=== PATIENT | male | born 1965 | race Caucasian/White ===

== ENCOUNTER 2016-10-31 07:42 | Inpatient (IN) | payer OTHER ==
--- NOTE | 2016-10-31 07:47 | PDOC ---
History of Present Illness - General Chief Complaint: Shortness of Breath Stated Complaint: SOB,DIZZY Time Seen by Provider: 10/31/16 07:46 - History of Present Illness Initial Comments: 10/31/16 08:56 Chief complaint: Shortness of breath History of present illness: Patient had an episode of shortness of breath yesterday while walking his dog up hill. This was accompanied by lightheadedness. It subsided within minutes after rest. There was no chest pain , nausea, diaphoresis, or discomfort in the jaw, shoulders, or arms. There was another episode of shortness of breath this morning while walking on level ground, which also subsided almost immediately with rest. No other symptoms accompanying this episode. Review of systems: Denies chest pain, abdominal pain, nausea, vomiting, diaphoresis, diarrhea, visual or focal neurologic symptoms, unsteadiness of gait. Denies recent melena, bloody stool, or hematemesis. Admits chronic bilateral lower leg pain, unrelated to exertion or exercise, poorly characterized but responsive to NSAIDs. Past medical history: The patient has not seen a physician in over 20 years. Outside of obesity and chronic bilateral leg pain, he has no known known active medical or surgical problems. He takes Naprosyn daily for his leg pain. He took aspirin 325 mg this morning because of his new symptoms. 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 Active, fully ambulatory. Family history: Sister with CHF, reportedly from chemotherapy. No known coronary artery disease in mother father or siblings. I diabetes or other metabolic diseases. Sister with cancer as noted, uncertain type Physical exam: Alert oriented 3 morbidly obese no acute distress no chest pain or shortness of breath at rest. Cheerful and cooperative Afebrile, blood pressure elevated in both arms in the 190/115 range. O2 saturation in the low 90s, but the patient does not appear short of breath or hypoxic. Right pupil 4 mm, round and reactive, fundi benign, ENT clear Neck supple without bruit mass or nodes Lungs clear bilaterally, although breath sounds are diminished symmetrically. No rales are heard. No wheezes or rhonchi. Respiratory rate is 16 and unlabored CV S1-S2 distant but normal, rate 95 and regular, no murmurs rubs or gallops. No JVD or edema. Pulses full and symmetric Abdomen soft nontender without mass or organomegaly Extremities no posterior calf swelling or tenderness. No cords. Skin clear, no rash, adequate turgor and what mucous membranes Neurological C2 to 12 intact, other than in the enucleated left eye.. No focal sensory or motor deficits. Strength full and symmetric. Gait unimpaired Impression: New onset shortness of breath, most likely due to mild CHF. Rule out acute coronary syndrome my transient arrhythmia, or less likely pulmonary embolus. Although the patient does not appear anxious, anxiety and/or hyperventilation is also possibility Plan: EKG, cardiac enzymes, CBC and chemistries, d-dimer, BNP, chest x-ray, lower blood pressure, observe. 10/31/16 10:36 10/31/16 10:39 Past History - Past Medical History Allergies/Adverse Reactions: Allergies Allergy/AdvReac Type Severity Reaction Status Date / Time Penicillins Allergy Unknown Verified 10/31/16 07:44 Home Medications: Ambulatory Orders Aspirin [ASA -] 325 mg PO ONCE 10/31/16 Naproxen Sodium [Aleve] 660 mg PO DAILY 10/31/16 ED Treatment Course - LABORATORY CBC & Chemistry Diagram: 10/31/16 08:55 10/31/16 08:55 Medical Decision Making - Medical Decision Making 10/31/16 09:09 EKG: Normal sinus rhythm 98/m. Normal axes and intervals. Small Q waves are present in leads 1-3 aVL and aVF, which are probably insignificant but possibly indicating an old inferior wall OK. There is also a P wave abnormality of uncertain significance 10/31/16 10:15 Chest x-ray read as normal by the radiologist Cardiac enzymes negative. Glucose 127. Electrolytes normal. Blood pressure remains significantly elevated. Continue pharmacological treatment and observation. 10/31/16 10:49 Blood pressure now 160/95 after administration of labetalol. Dr. Kim Kyle contacted by phone. Case discussed. She will admit for further evaluation Dr. Ford of cardiology contacted. Case discussed and he will consult. *DC/Admit/Observation/Transfer Diagnosis at time of Disposition: Elevated blood pressure, Acute coronary syndrome - Discharge Dispostion Admit: Yes
[2016-10-31 08:19] VITALS: BMI 56.9
[2016-10-31] MEDS ORDERED: NITROGLYCERIN 2% OINTMENT - 1GM PACKET TD ONE ×2 (08:30→08:43)
[2016-10-31 09:25] LABS: INR 1.2 (0.82-1.09); PROTHROMBIN TIME (PATIENT) 13.4 SEC (10.2-13.0)
[2016-10-31 09:31] LABS: ALBUMIN 3.6 g/dl (3.5-5.0); ALK PHOS 81 U/L (32-92); ANION GAP 11 (8-16); BILIRUBIN,TOTAL 0.3 mg/dl (0.2-1.0); CALCIUM 8.7 mg/dl (8.4-10.2); CO2 23 mmol/L (22-28); CPK(DFH) 75 IU/L (38-174); CREATININE 0.7 mg/dl (0.6-1.3); GLUCOSE,RANDOM 127 mg/dl (74-106); SGOT/AST 17 U/L (10-42); SGPT/ALT 21 U/L (10-40); TOT PROT 6.8 g/dl (6.4-8.3)
[2016-10-31 09:45] LABS: CHOLESTEROL 174 mg/dl
[2016-10-31 09:45] LABS: TROPONIN I (DFP) < 0.03 ng/ml (0.03-0.50)
[2016-10-31] MEDS ORDERED: LABETALOL HCL 5 MG/1 ML (100MG/20 ML VIAL) IVPUSH ONE (10:06)
[2016-10-31] MEDS ORDERED: LABETALOL HCL 5 MG/1 ML (100MG/20 ML VIAL) ONE (10:07)
[2016-10-31 10:36] LABS: MCH 26.5 pg (25.7-33.7); MCHC 32.8 g/dl (32.0-35.9); WHITE BLOOD COUNT 9.9 K/mm3 (4.0-10.0)
[2016-10-31 10:37] LABS: BASOPHIL 0.4 % (0-2.0); EOSINOPHIL 1.4 % (0-4.5); MEAN PLT VOLUME 8.3 fl (7.5-11.1); NEUTROPHILS 85.5 % (42.8-82.8); PLATELET COUNT 184 K/MM3 (134-434); RDW 15.2 % (11.9-15.9)
[2016-10-31 10:46] LABS: FREE T4 1.29 ng/dl (0.76-1.16); THYROID STIMULATING HORMONE 1.8 uIU/ml (0.358-3.74)
[2016-10-31] MEDS ORDERED: ACETAMINOPHEN 325 MG TABLET (FP) ONE (10:47)
[2016-10-31] MEDS ORDERED: ACETAMINOPHEN 325 MG TABLET (FP) PO ONE (10:47)
--- NOTE | 2016-10-31 16:54 | CON.CARD ---
Consult Consult Specialty:: Cardiology Referred by:: ED Reason for Consultation:: Dyspnea on exertion, hypertensive urgency - History of Present Illness Chief Complaint: Dyspnea on exertion History of Present Illness: 51 yo patient presented for shortness of breath while walking his dog up hill accompanied by lightheadedness subsided within minutes after rest. He denies chest pain, palpitations, near or true syncope, orthopnea, PND, LE edema. He reports another episode of shortness of breath this morning while walking on level ground, which also subsided with rest. He takes Naprosyn daily for leg pain. He took aspirin 325 mg this morning because of his new symptoms. - History Source History Provided By: Patient Limitations to Obtaining History: No Limitations - Alcohol/Substance Use Hx Alcohol Use: No - Smoking History Smoking history: Former smoker Have you smoked in the past 12 months: No If you are a former smoker, when did you quit?: 1980S Home Medications - Allergies Allergies/Adverse Reactions: Allergies Allergy/AdvReac Type Severity Reaction Status Date / Time Penicillins Allergy Unknown Verified 10/31/16 07:44 - Home Medications Home Medications: Ambulatory Orders Aspirin [ASA -] 325 mg PO ONCE 10/31/16 Naproxen Sodium [Aleve] 660 mg PO DAILY 10/31/16 Review of Systems - Review of Systems Respiratory: reports: SOB on Exertion Vital Signs: Vital Signs Temperature 98.1 F 10/31/16 16:20 Pulse Rate 96 H 10/31/16 16:20 Respiratory Rate 18 10/31/16 16:20 Blood Pressure 177/90 10/31/16 16:20 O2 Sat by Pulse Oximetry (%) 91 L 10/31/16 15:51 Constitutional: Yes: No Distress, Calm Neck: Yes: Supple Respiratory: Yes: Regular, Diminished Gastrointestinal: Yes: Normal Bowel Sounds, Soft, Abdomen, Obese Cardiovascular: Yes: Regular Rate and Rhythm JVD: No Carotid Bruit: No Heart Sounds: Yes: S1, S2 Edema: No - Other Data Labs, Other Data: INR, PTT INR 1.20 (0.82-1.09) 10/31/16 08:55 Echo: Report Reviewed Ejection Fraction %: LVEF > or = 40 % Imaging - Results Cat Scan: Report Reviewed (Bilateral lower lobe edema) Problem List - Problems (1) Acute on chronic diastolic (congestive) heart failure Code(s): I50.33 - ACUTE ON CHRONIC DIASTOLIC (CONGESTIVE) HEART FAILURE (2) Hypertensive urgency Code(s): I10 - ESSENTIAL (PRIMARY) HYPERTENSION (3) Dyspnea on exertion Code(s): R06.09 - OTHER FORMS OF DYSPNEA (4) Morbid obesity Code(s): E66.01 - MORBID (SEVERE) OBESITY DUE TO EXCESS CALORIES (5) Obstructive sleep apnea Code(s): G47.33 - OBSTRUCTIVE SLEEP APNEA (ADULT) (PEDIATRIC) Assessment/Plan 10/30/2016 Normal LV size with mild decreased LV fxn, mild cLVH, diastolic dysfunction, tr TR 10/30/[address] - Neg PE, acute consolidation bilateral lower lobes 1. Acute on chronic diastolic failure in context of 2. Hypertensive urgency, NSAID use 3. Morbid obesity 4. OSAS P:1. IV diuresis with monitor diuretic response, renal fxn and electrolytes 2. Start carvedilol 6.25 bid and Diovan 80 qd with uptitration as hemodynamics tolerate 3. NSAID avoidance 4. Sleep study as outpatient 5. Thank you for consultative opportunity
[2016-10-31] MEDS: VALSARTAN 80 MG TABLET (UD) PO SCH (17:19)
[2016-10-31] MEDS: CARVEDILOL 6.25 MG TABLET (FP) PO SCH ×2 (17:20→21:24)
[2016-10-31] MEDS: FUROSEMIDE 40 MG/4 ML INJECTABLE VIAL IVPB SCH (17:20)
[2016-10-31] MEDS ORDERED: ACETAMINOPHEN 325 MG TABLET (FP) PO PRN (18:50)
[2016-10-31] MEDS ORDERED: POLYETHYLENE GLYCOL 3350 119 GM BTL PO PRN (18:50)
[2016-10-31] MEDS ORDERED: diphenhydrAMINE HCL 25 MG CAPSULE (FP) PO PRN (18:50)
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
[2016-10-31] MEDS: ASPIRIN 325 MG TABLET PO SCH (21:23)
[2016-10-31] MEDS: HEPARIN NA (PORCINE) 5,000 UNITS/ML 1ML VIAL SQ SCH (21:24)
[2016-11-01] MEDS: HEPARIN NA (PORCINE) 5,000 UNITS/ML 1ML VIAL SQ SCH ×3 (06:41→21:47)
[2016-11-01 09:30] LABS: CALCIUM 8.8 mg/dl (8.4-10.2); MAGNESIUM 1.8 mg/dL (1.8-2.4)
[2016-11-01] MEDS: VALSARTAN 80 MG TABLET (UD) PO SCH (09:56)
[2016-11-01] MEDS: CARVEDILOL 6.25 MG TABLET (FP) PO SCH ×2 (09:56→21:47)
[2016-11-01] MEDS: FUROSEMIDE 40 MG/4 ML INJECTABLE VIAL IVPB SCH (09:56)
[2016-11-01] MEDS: ASPIRIN 325 MG TABLET PO SCH (09:56)
[2016-11-01] MEDS ORDERED: POTASSIUM CHLORIDE TABS 20 MEQ TABLET.ER (FP) PO ONE (13:45)
--- NOTE | 2016-11-01 16:21 | EKG ---
Test Reason : Blood Pressure : / mmHG Vent. Rate : 098 BPM Atrial Rate : 098 BPM P-R Int : 124 ms QRS Dur : 102 ms QT Int : 370 ms P-R-T Axes : 000 036 006 degrees QTc Int : 472 ms NORMAL SINUS RHYTHM CANNOT RULE OUT INFERIOR INFARCT , AGE UNDETERMINED NO PREVIOUS ECGS AVAILABLE Confirmed by MD CHRISTINE, GUANAKO ([id number]) on 11/01/2016 4:21:17 PM Referred By: CHAKA CASTRO Confirmed By:GUANAKO KING MD
[2016-11-01] MEDS ORDERED: FUROSEMIDE 40 MG/4 ML INJECTABLE VIAL IVPB ONE (18:00)
[2016-11-01] MEDS ORDERED: ALBUTEROL SO4 0.083% IH SOL 2.5 MG/3 ML VIAL.NEB. NEB PRN (19:20)
[2016-11-01] MEDS: LEVOFLOXACIN 500 MG IVPB 100 ML IVPB SCH (21:47)
--- NOTE | 2016-11-01 23:19 | PN ---
Progress Note, Physician Chief Complaint: Cough w uri sxs still PORTILLO and tired History of Present Illness: No evidence of acute coronary but pt w resp difficuties CXR form today w reported as + infiltrates. Will start iv abx and albutrol vi neg - Current Medication List Current Medications: Active Medications Acetaminophen (Tylenol -) 650 mg PO Q6H PRN PRN Reason: FEVER OR PAIN Albuterol Sulfate (Ventolin 0.083% Nebulizer Soln -) 1 amp NEB Q4H PRN PRN Reason: SHORT OF BREATH/WHEEZING Aspirin (Asa -) 325 mg PO DAILY [facility] Last Admin: 11/01/16 09:56 Dose: 325 mg Carvedilol (Coreg -) 6.25 mg PO BID [facility] Last Admin: 11/01/16 21:47 Dose: 6.25 mg Diphenhydramine HCl (Benadryl -) 25 mg PO HS PRN PRN Reason: INSOMNIA Furosemide (Lasix Injection -) 40 mg IVPB DAILY [facility] Last Admin: 11/01/16 09:56 Dose: 40 mg Heparin Sodium (Porcine) (Heparin -) 5,000 unit SQ TID [facility] Last Admin: 11/01/16 21:47 Dose: 5,000 unit Levofloxacin (Levaquin 500 Mg Premixed Ivpb -) 100 mls @ 100 mls/hr IVPB DAILY [facility] Last Admin: 11/01/16 21:47 Dose: 100 mls/hr Polyethylene Glycol (Miralax (For Daily Use) -) 17 gm PO DAILY PRN PRN Reason: CONSTIPATION Valsartan (Diovan -) 80 mg PO DAILY [facility] Last Admin: 11/01/16 09:56 Dose: 80 mg - Objective Vital Signs: Vital Signs Temperature 98.6 F 11/01/16 14:00 Pulse Rate 83 11/01/16 14:00 Respiratory Rate 16 11/01/16 14:00 Blood Pressure 114/72 11/01/16 14:00 O2 Sat by Pulse Oximetry (%) 92 L 11/01/16 14:00 Neck: Yes: Supple Cardiovascular: Yes: Regular Rate and Rhythm Respiratory: Yes: Diminished Gastrointestinal: Yes: Normal Bowel Sounds, Abdomen, Obese Extremities: Yes: WNL Integumentary: Yes: WNL Neurological: Yes: Alert, Oriented Psychiatric: Yes: Alert, Oriented Labs: CBC, BMP 11/01/16 08:35 INR, PTT INR 1.20 (0.82-1.09) 10/31/16 08:55 - ....Imaging Chest X-ray: Report Reviewed Problem List - Problems (1) Acute on chronic diastolic (congestive) heart failure Assessment/Plan: Dx based on Hx of presentation, clinicalexam and Echo. No evidence ao Acutes Coronary event OR CAD so far despite Hi risk. Pt w New HTN Dx, tho pt wo med eval ~20 yrs and therefore no clear answer of time of chronicity. Cardio has consulted on pt and is managing the pt. I agree w plan of care. Code(s): I50.33 - ACUTE ON CHRONIC DIASTOLIC (CONGESTIVE) HEART FAILURE (2) Dyspnea on exertion Assessment/Plan: sudden onset performing his usual level of activity; probably decompensated from subclinical diastolic failure. Today w evidence of B/L Infilytrtes, strted IV abx and Albuterol Via NB q 4 hrs Code(s): R06.09 - OTHER FORMS OF DYSPNEA (3) Elevated blood pressure Assessment/Plan: see above most likely chronic and w/o management being the precipitating facto for Acute Diastolic failure events of this admission. Improved w BB and Iv Diuretics. Cont mgmt per Cardio. WNL now Code(s): I10 - ESSENTIAL (PRIMARY) HYPERTENSION (4) Hypertensive urgency Assessment/Plan: see above; improved post Mgmt in ED and continued mgmt now. Code(s): I10 - ESSENTIAL (PRIMARY) HYPERTENSION (5) Morbid obesity Assessment/Plan: BMI 57- Most likely a major contributing factor to HTN and The Urgent event. NEEDS to addresed in the outpt setting. Pt Is a Good candidate for Bariatric Surgery IF Cardiac Clearance is granted. Code(s): E66.01 - MORBID (SEVERE) OBESITY DUE TO EXCESS CALORIES Qualifiers: Obesity type: unspecified obesity type Qualified Code(s): E66.01 - Morbid (severe) obesity due to excess calories (6) Obstructive sleep apnea Assessment/Plan: needs Sleep Study in the Outpt setting for confirmed Dx and CPAP settings. Code(s): G47.33 - OBSTRUCTIVE SLEEP APNEA (ADULT) (PEDIATRIC) (7) Bilateral pneumonia Assessment/Plan: Pt w none resolving PORTILLO despite txm for diatolic failure; CXR reported as Jese infiltratres C/W admission CXR + Nosocomial -> Started IV Abx- Consider Pulm +/ Or ID consult. Code(s): J18.9 - PNEUMONIA, UNSPECIFIED ORGANISM
[2016-11-02] MEDS: HEPARIN NA (PORCINE) 5,000 UNITS/ML 1ML VIAL SQ SCH ×3 (06:27→21:15)
--- NOTE | 2016-11-02 09:24 | PN ---
Progress Note, Physician Chief Complaint: Events noted Complains of dyspnea on exertion and cough History of Present Illness: Patient was seen and examined. Awake and alert. Chart was reviewed Denies chest pain. Complains of shortness of breath with exertion. No palpitation Complains of cough. Desaturates without oxygen - Current Medication List Current Medications: Active Medications Acetaminophen (Tylenol -) 650 mg PO Q6H PRN PRN Reason: FEVER OR PAIN Albuterol Sulfate (Ventolin 0.083% Nebulizer Soln -) 1 amp NEB Q4H PRN PRN Reason: SHORT OF BREATH/WHEEZING Aspirin (Asa -) 325 mg PO DAILY [facility] Last Admin: 11/01/16 09:56 Dose: 325 mg Carvedilol (Coreg -) 6.25 mg PO BID [facility] Last Admin: 11/01/16 21:47 Dose: 6.25 mg Diphenhydramine HCl (Benadryl -) 25 mg PO HS PRN PRN Reason: INSOMNIA Furosemide (Lasix Injection -) 40 mg IVPB DAILY [facility] Last Admin: 11/01/16 09:56 Dose: 40 mg Heparin Sodium (Porcine) (Heparin -) 5,000 unit SQ TID [facility] Last Admin: 11/02/16 06:27 Dose: 5,000 unit Levofloxacin (Levaquin 500 Mg Premixed Ivpb -) 100 mls @ 100 mls/hr IVPB DAILY [facility] Last Admin: 11/01/16 21:47 Dose: 100 mls/hr Polyethylene Glycol (Miralax (For Daily Use) -) 17 gm PO DAILY PRN PRN Reason: CONSTIPATION Valsartan (Diovan -) 80 mg PO DAILY [facility] Last Admin: 11/01/16 09:56 Dose: 80 mg - Objective Vital Signs: Vital Signs Temperature 98.8 F 11/02/16 04:27 Pulse Rate 82 11/02/16 07:31 Respiratory Rate 20 11/02/16 04:27 Blood Pressure 124/78 11/02/16 07:31 O2 Sat by Pulse Oximetry (%) 93 L 11/02/16 08:53 Neck: Yes: Supple Cardiovascular: Yes: Regular Rate and Rhythm, S1, S2 Respiratory: Yes: Diminished Gastrointestinal: Yes: Normal Bowel Sounds, Soft, Abdomen, Obese. No: Tenderness Edema: Yes Edema: LLE: Trace, RLE: Trace Additional Findings/Remarks: - Review of Systems Constitutional: denies: Chills, Fever Cardiovascular: reports: Shortness of Breath. denies: Chest Pain, Palpitations Respiratory: reports: Orthopnea, SOB, SOB on Exertion. denies: Cough, Hemoptysis, PND, Wheezing Gastrointestinal: denies: Abdominal Pain, Constipation, Diarrhea, Melena, Nausea , Rectal Bleeding, Vomiting Genitourinary: denies: Dysuria Musculoskeletal: denies: Joint Pain Neurological: denies: Dizziness, Headache, Seizure, Syncope Labs: CBC, BMP 11/01/16 08:35 Problem List - Problems (1) Acute on chronic diastolic (congestive) heart failure Code(s): I50.33 - ACUTE ON CHRONIC DIASTOLIC (CONGESTIVE) HEART FAILURE (2) Dyspnea on exertion Code(s): R06.09 - OTHER FORMS OF DYSPNEA (3) Elevated blood pressure Code(s): I10 - ESSENTIAL (PRIMARY) HYPERTENSION (4) Morbid obesity Code(s): E66.01 - MORBID (SEVERE) OBESITY DUE TO EXCESS CALORIES Qualifiers: Obesity type: unspecified obesity type Qualified Code(s): E66.01 - Morbid (severe) obesity due to excess calories (5) Obstructive sleep apnea Code(s): G47.33 - OBSTRUCTIVE SLEEP APNEA (ADULT) (PEDIATRIC) (6) Pneumonia Code(s): J18.9 - PNEUMONIA, UNSPECIFIED ORGANISM Qualifiers: Pneumonia type: due to unspecified organism Laterality: bilateral Lung location: lower lobe of lung Qualified Code(s): J18.9 - Pneumonia, unspecified organism Assessment/Plan 1. Acute on chronic diastolic failure with mildly decreased LV systolic function 2. Clinical presentation suggests pneumonia 3. Hypertension 4. Morbid obesity 5. OSAS PLAN: 1. IV diuresis with monitoring renal function and electrolytes - IV Lasix 2. Continue Carvedilol 6.25 mg BID and Diovan 80 mg QD with uptitration as hemodynamics tolerate 3. Avoid NSAIDs 4. Will need sleep study at some point - can be done as outpatient 5. Antibiotic coverage 6. Consider pulmonary consultation 7. Transthoracic echocardiography revealed normal LV size with mild decreased LV function, mild LVH, diastolic dysfunction and trace TR (10/30/16) Further plans are to follow Ralph Ford MD
[2016-11-02] MEDS: VALSARTAN 80 MG TABLET (UD) PO SCH (09:56)
[2016-11-02] MEDS: CARVEDILOL 6.25 MG TABLET (FP) PO SCH ×2 (09:56→21:15)
[2016-11-02] MEDS: ASPIRIN 325 MG TABLET PO SCH (09:57)
[2016-11-02] MEDS: LEVOFLOXACIN 500 MG IVPB 100 ML IVPB SCH (09:58)
[2016-11-02] MEDS: FUROSEMIDE 40 MG/4 ML INJECTABLE VIAL IVPB SCH (09:58)
[2016-11-02] MEDS ORDERED: PIPERACILLIN/TAZOB 4.5 GM/100 ML PRE-DOCKED IVPB ONE (15:00)
[2016-11-02] MEDS ORDERED: OSELTAMIVIR PHOSPHATE 75 MG CAPSULE PO SCH (15:45)
--- NOTE | 2016-11-02 15:56 | PN ---
Progress Note (short form) - Note Progress Note: ID consult dictated imp/reccd impending respiratory failure pneumonia-?viral, ?CAP chf htn morbid obesity penicillin allergy- unknown blood cultures, sputum culture, cbc, cmp, esr/crp, ABG vancomycin/levaquin/tamiflu (empiric) droplet isolation d/w Dr Jun Kyle and Dr Montgomery will transfer to [facility] ICU for close respiratory monitoring
--- NOTE | 2016-11-02 16:12 | PN ---
Progress Note (short form) - Note Progress Note: PULMONARY DISCUSSED CASE WITH DR BISWAS AND DR AVERY ALLISON CHART REVIEWED/IMAGING/MEDS/CONSULTS/LABS REVIEWED LVDD/CHF AND HYPOXIC RESPIRATORY FAILURE/B/L INFILTRATES ON CT(PE RULED OUT) SUPERIMOSED UPON LIKELY OSAS/OBESITY HYPOVENTILATION SYNDROME WILL TRANSFER TO [facility]. Amber ALMANZAR MD
[2016-11-02] MEDS ORDERED: VANCOMYCIN 1,500 MG in DEXTROSE 5%-WATER - 250 ML IVPB SCH (16:15)
--- NOTE | 2016-11-02 16:25 | PN ---
Progress Note, Physician Chief Complaint: Increase SOB w Lightheadednesss while taking a shower. Coughing w Mucus. No Chest pain. History of Present Illness: Admitted w ACUTE Onset PORTILLO x 1 day w Dx Acute Diastolic Heart Failure possible Due to HTN urgency; pt w/o medical care since . Txd w IV Diuretic. Admisssion CTA r/o PE was tomas X for possible Infiltrates with CXR NEG for infiltrates, No cough , afeb and NL wbc. On 1 day post admission pts w persistent PORTILLO and FUP CXR + LLL /Sup Segment AND RLL Infiltrate. Started w Levaqin IV at 500/day Plus Albuterol Neb q 4 hrs. TODAY while taking a shower pt w Incr PORTILLO plus SaO2 88% w 5 LT NC. Pulm and ID consult had been requseted. ID was On Floor who Eval pt. Under their assistance and due to pts Hypoxemia and clinical statu si t was decided pt would benefit from transfer to [facility]. ID DW w Pulmary and Primary who agreed w that plan. Pt to cont Levaquin and was started on Tamiflu, Venti Mask @ 50% (SaO2 95%. ID ordered Lactic acid, ABG, ESR, BNP and repeat CBC/diff/ CMP/ CXR virgie. Will Be trasfered to ICU [facility] - Current Medication List Current Medications: Active Medications Acetaminophen (Tylenol -) 650 mg PO Q6H PRN PRN Reason: FEVER OR PAIN Albuterol Sulfate (Ventolin 0.083% Nebulizer Soln -) 1 amp NEB Q4H PRN PRN Reason: SHORT OF BREATH/WHEEZING Last Admin: 11/02/16 10:06 Dose: 1 amp Aspirin (Asa -) 325 mg PO DAILY [facility] Last Admin: 11/02/16 09:57 Dose: 325 mg Carvedilol (Coreg -) 6.25 mg PO BID [facility] Last Admin: 11/02/16 09:56 Dose: 6.25 mg Diphenhydramine HCl (Benadryl -) 25 mg PO HS PRN PRN Reason: INSOMNIA Furosemide (Lasix Injection -) 40 mg IVPB DAILY [facility] Last Admin: 11/02/16 09:58 Dose: 40 mg Heparin Sodium (Porcine) (Heparin -) 5,000 unit SQ TID [facility] Last Admin: 11/02/16 13:58 Dose: 5,000 unit Levofloxacin (Levaquin 750 Mg Premixed Ivpb -) 150 mls @ 150 mls/hr IVPB DAILY [facility] Oseltamivir Phosphate (Tamiflu -) 75 mg PO BID [facility] Stop: 11/07/16 15:44 Polyethylene Glycol (Miralax (For Daily Use) -) 17 gm PO DAILY PRN PRN Reason: CONSTIPATION Valsartan (Diovan -) 80 mg PO DAILY [facility] Last Admin: 11/02/16 09:56 Dose: 80 mg - Objective Vital Signs: Vital Signs Temperature 98.5 F 11/02/16 14:57 Pulse Rate 81 11/02/16 14:57 Respiratory Rate 20 11/02/16 14:57 Blood Pressure 138/89 11/02/16 14:57 O2 Sat by Pulse Oximetry (%) 92 L 11/02/16 14:57 Constitutional: Yes: Obese (Mild Distress due to Resp distress better while w Resp Horace/ O2) Neck: Yes: Supple, Trachea Midline Cardiovascular: Yes: Regular Rate and Rhythm, Bruit (NO), JVD (NO) Respiratory: Yes: Diminished, Dullness, On Venti-Mask (50% w SAo2 95%), Orthopnea (NO), SOB, SOB on Exertion, Tachypnea (NO), Wheezes (NO), Other (BMI 57) Gastrointestinal: Yes: Normal Bowel Sounds, Abdomen, Obese ...Rectal Exam: Yes: Deferred Extremities: Yes: WNL, Calf Tenderness (NO) Edema: LLE: Trace, RLE: Trace Peripheral Pulses: Left Doralis Pedis: 1+, Right Dorsalis Pedis: 1+ Integumentary: Yes: WNL Neurological: Yes: Alert, Oriented Psychiatric: Yes: Alert, Oriented Labs: CBC, BMP 11/01/16 08:35 INR, PTT INR 1.20 (0.82-1.09) 10/31/16 08:55 Problem List - Problems (1) Acute on chronic diastolic (congestive) heart failure Assessment/Plan: SEE HPI. Cont Txmet w IV Diuretic and O2; no evidence of Acute coronary event; will order Troponin x 3 Code(s): I50.33 - ACUTE ON CHRONIC DIASTOLIC (CONGESTIVE) HEART FAILURE (2) Dyspnea on exertion Assessment/Plan: sudden onset performing his usual level of activity; probably decompensated from subclinical diastolic failure. It is now complicated by B/L PNA. SEE Above. Code(s): R06.09 - OTHER FORMS OF DYSPNEA (3) Elevated blood pressure Assessment/Plan: see above most likely chronic and w/o management being the precipitating facto for Acute Diastolic failure events of this admission. Improved w BB and Iv Diuretics. Cont mgmt per Cardio. WNL now Code(s): I10 - ESSENTIAL (PRIMARY) HYPERTENSION (4) Hypertensive urgency Assessment/Plan: see above; improved post Mgmt in ED and continued mgmt now. Code(s): I10 - ESSENTIAL (PRIMARY) HYPERTENSION (5) Morbid obesity Assessment/Plan: BMI 57- Most likely a major contributing factor to HTN and The Urgent event. NEEDS to addresed in the outpt setting. Pt Is a Good candidate for Bariatric Surgery IF Cardiac Clearance is granted. Code(s): E66.01 - MORBID (SEVERE) OBESITY DUE TO EXCESS CALORIES Qualifiers: Obesity type: unspecified obesity type Qualified Code(s): E66.01 - Morbid (severe) obesity due to excess calories (6) Obstructive sleep apnea Assessment/Plan: needs Sleep Study in the Outpt setting for confirmed Dx and CPAP settings. Code(s): G47.33 - OBSTRUCTIVE SLEEP APNEA (ADULT) (PEDIATRIC) (7) Bilateral pneumonia Assessment/Plan: Pt w none resolving PORTILLO despite txm for diatolic failure; CXR reported as Jese infiltratres C/W admission CXR ; Posssibly Nosocomial VS Underlying prior to admission- SEE HPI : Appreciate ID and Pulm input. Started On Levaquin yesterday and started Tamiflu todat. On VM 50% w SAO2 95%. Pend ABG, CBC, CMP, Lactic acid, ESR, BNP, Portable CXR,and BCS.. To be Transfere to ICU (5); Will Follow. Code(s): J18.9 - PNEUMONIA, UNSPECIFIED ORGANISM
[2016-11-02 16:28] LABS: MCHC 32.1 g/dl (32.0-35.9); MEAN CELL VOLUME 81.1 fl (80-96); MEAN PLT VOLUME 9.2 fl (7.5-11.1); PLATELET COUNT 175 K/MM3 (134-434); RDW 14.7 % (11.9-15.9); WHITE BLOOD COUNT 13.6 K/mm3 (4.0-10.0)
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
[2016-11-02 16:56] LABS: ALBUMIN 3.5 g/dl (3.5-5.0); ALK PHOS 96 U/L (32-92); ANION GAP 11 (8-16); CALCIUM 9.2 mg/dl (8.4-10.2); CO2 27 mmol/L (22-28); CREATININE 1.2 mg/dl (0.6-1.3); GLUCOSE,RANDOM 162 mg/dl (74-106); SGOT/AST 32 U/L (10-42); SGPT/ALT 42 U/L (10-40); TOT PROT 6.8 g/dl (6.4-8.3)
[2016-11-02 17:14] LABS: BILIRUBIN,TOTAL 0.3 mg/dl (0.2-1.0)
[2016-11-02 17:51] LABS: ERYTHROCYTE SEDIMENTATION RATE 15 mm/hr (0-20)
[2016-11-02] MEDS ORDERED: PIPERACILLIN/TAZOB 4.5 GM/100 ML PRE-DOCKED IVPB SCH (18:00)
[2016-11-02 18:21] LABS: ARTERIAL BLD GAS O2 SATURATION 99.3 % (90-98.9); ARTERIAL BLOOD GAS HCO3 23.6 meq/L (22-26); ARTERIAL BLOOD GAS pH 7.42 (7.35-7.45)
[2016-11-02 18:22] LABS: PT. ON O2? YES
[2016-11-02 18:24] LABS: LPM/O2% 5L; TYPE OF O2 NASAL
[2016-11-02 18:36] LABS: C-REACTIVE PROTEIN 2.8 MG/DL (0.00-0.3)
[2016-11-02] MEDS ORDERED: ACETAMINOPHEN 325 MG TABLET (FP) PO PRN (18:41)
[2016-11-02] MEDS ORDERED: diphenhydrAMINE HCL 25 MG CAPSULE (FP) PO PRN (18:41)
[2016-11-02] MEDS ORDERED: POLYETHYLENE GLYCOL 3350 119 GM BTL PO PRN (18:41)
[2016-11-02] MEDS ORDERED: FUROSEMIDE 40 MG/4 ML INJECTABLE VIAL IVPUSH ONE (20:39)
[2016-11-02] MEDS ORDERED: guaiFENesin/D-METHORPHAN HB 10 ML UNIT-DOSE CUPS PO PRN (21:02)
[2016-11-02] MEDS: VANCOMYCIN 1,500 MG in DEXTROSE 5%-WATER - 500 ML IVPB SCH (21:13)
[2016-11-02] MEDS: OSELTAMIVIR PHOSPHATE 75 MG CAPSULE PO SCH (21:13)
[2016-11-02] MEDS ORDERED: PT OWN MED DRAWER 7, Y5N ONE (21:14)
--- NOTE | 2016-11-02 21:31 | CONSULT ---
Consult Consult Specialty:: Pulm/CCM [employer] - History of Present Illness Chief Complaint: Dyspnea History of Present Illness: 51M w/o PMH and Morbid Obesity (BMI 57) who has not seen doctor since who presented to ER with c/o acute dyspnea on exertion. Was found to be hypertensive to [id number] with bilat diffuse opacities on CXR, WBC 9.9->13.6, N85 %, lactate 1.9, BNP 4809, Flu swab negative. CTA showed no e/o PE. He denied any prodrome of URI, fever, chills, chest pain, palpitations, syncope, sick contacts. He was initially admitted to the telemetry unit and medically treated for hypertensive urgency with diuretics, antihypertensives, nebs and started on CAP coverage and Tamiflu. Despite treatment his dyspnea worsened with need for increasing O2 support. He was transferred to ICU for further management. Received in ICU A+Ox3, afebrile, SBP 170's, HR 80's, O2 sat 96 % on 50% venti- mask, SOB and with persistent non-productive cough. He c/o pleuritic sternal pain with cough that radiated to back. Continued antibiotics , Lasix given. - History Source History Provided By: Patient Limitations to Obtaining History: No Limitations - Alcohol/Substance Use Hx Alcohol Use: No - Smoking History Smoking history: Former smoker Have you smoked in the past 12 months: No If you are a former smoker, when did you quit?: - Social History ADL: Independent Home Medications - Allergies Allergies/Adverse Reactions: Allergies Allergy/AdvReac Type Severity Reaction Status Date / Time Penicillins Allergy Unknown Verified 10/31/16 07:44 - Home Medications Home Medications: Ambulatory Orders Aspirin [ASA -] 325 mg PO ONCE 10/31/16 Naproxen Sodium [Aleve] 660 mg PO DAILY 10/31/16 Family Disease History - Family Disease History Family History: Unremarkable Review of Systems - Review of Systems Constitutional: reports: No Symptoms Eyes: reports: No Symptoms HENT: reports: No Symptoms Neck: reports: No Symptoms Cardiovascular: reports: Other (Bilat claudication) Respiratory: reports: Cough, SOB Gastrointestinal: reports: No Symptoms Genitourinary: reports: No Symptoms Neurological: reports: No Symptoms Hematology/Lymphatic: reports: No Symptoms Psychiatric: reports: No Symptoms Physical Exam Vital Signs: Vital Signs Temperature 98.9 F 11/02/16 18:00 Pulse Rate 89 11/02/16 20:55 Respiratory Rate 22 11/02/16 20:55 Blood Pressure 157/110 11/02/16 20:55 O2 Sat by Pulse Oximetry (%) 95 11/02/16 20:13 Constitutional: Yes: Other (morbid obesity) Eyes: Yes: Conjunctiva Clear HENT: Yes: Normocephalic Neck: Yes: Other (obese, unable to assess JVD) Cardiovascular: Yes: Tachycardia Respiratory: Yes: Cough (Non-productive), Diminished (Diminished bases bilat), On Venti-Mask (Venti-mask 50%) Gastrointestinal: Yes: Abdomen, Obese Extremities: Yes: Other Edema: LLE: Trace, RLE: Trace Peripheral Pulses WNL: Yes Integumentary: Yes: WNL Neurological: Yes: WNL ...Motor Strength: WNL Psychiatric: Yes: WNL Labs: CBC, BMP 11/02/16 16:00 11/02/16 16:00 ABG Results ABG pH 7.42 (7.35-7.45) 11/02/16 18:18 ABG pCO2 at Pt Temp 36.7 mmHg (35-45) 11/02/16 18:18 ABG pO2 at Pt Temp 192.0 mmHg (80-100) H* 11/02/16 18:18 ABG HCO3 23.6 meq/L (22-26) 11/02/16 18:18 ABG O2 Sat (Measured) 99.3 % (90-98.9) H 11/02/16 18:18 ABG O2 Content 21.6 % vol (15-22) 11/02/16 18:18 ABG Base Excess 0.0 meq/l (-2-2) 11/02/16 18:18 CMP Sodium 141 mmol/L (136-145) 11/02/16 16:00 Potassium 4.0 mmol/L (3.5-5.1) 11/02/16 16:00 Chloride 103 mmol/L (98-107) 11/02/16 16:00 Carbon Dioxide 27 mmol/L (22-28) 11/02/16 16:00 Anion Gap 11 (8-16) 11/02/16 16:00 BUN 28 mg/dl (7-18) H 11/02/16 16:00 Creatinine 1.2 mg/dl (0.6-1.3) 11/02/16 16:00 Creat Clearance w eGFR > 60 (>60) 11/02/16 16:00 Random Glucose 162 mg/dl (74-106) H 11/02/16 16:00 Hemoglobin A1c % 5.8 % (4.8-6.0) D 11/01/16 08:35 Lactic Acid 1.939 mmol/L (0.4-2.0) 11/02/16 16:00 Calcium 9.2 mg/dl (8.4-10.2) 11/02/16 16:00 Magnesium 1.8 mg/dL (1.8-2.4) 11/01/16 08:35 Total Bilirubin 0.3 mg/dl (0.2-1.0) 11/02/16 16:00 AST 32 U/L (10-42) D 11/02/16 16:00 ALT 42 U/L (10-40) H D 11/02/16 16:00 Alkaline Phosphatase 96 U/L (32-92) H 11/02/16 16:00 Creatine Kinase 75 IU/L (38-174) 10/31/16 08:55 Troponin I < 0.03 ng/ml (0.03-0.50) L 10/31/16 08:55 C-Reactive Protein 2.8 MG/DL (0.00-0.3) H 11/02/16 16:00 B-Natriuretic Peptide 4809.77 pg/ml (5-125) H 11/02/16 16:20 Total Protein 6.8 g/dl (6.4-8.3) 11/02/16 16:00 Albumin 3.5 g/dl (3.5-5.0) 11/02/16 16:00 Triglycerides 72 mg/dl (35-160) 10/31/16 09:08 Cholesterol 174 mg/dl 10/31/16 09:08 Total LDL Cholesterol 114 mg/dl 10/31/16 09:08 HDL Cholesterol 46 mg/dl (29-89) 10/31/16 09:08 TSH 1.80 uIU/ml (0.358-3.74) 10/31/16 09:08 Free T4 1.29 ng/dl (0.76-1.16) H 10/31/16 09:08 Current Medications Acetaminophen (Tylenol -) 650 mg PO Q6H PRN PRN Reason: FEVER OR PAIN Albuterol Sulfate (Ventolin 0.083% Nebulizer Soln -) 1 amp NEB Q4H PRN PRN Reason: SHORT OF BREATH/WHEEZING Aspirin (Asa -) 325 mg PO DAILY [facility] Carvedilol (Coreg -) 6.25 mg PO BID [facility] Last Admin: 11/02/16 21:15 Dose: 6.25 mg Diphenhydramine HCl (Benadryl -) 25 mg PO HS PRN PRN Reason: INSOMNIA Furosemide (Lasix Injection -) 40 mg IVPB DAILY [facility] Guaifenesin (Robitussin Dm -) 10 ml PO Q4H PRN PRN Reason: COUGH Heparin Sodium (Porcine) (Heparin -) 5,000 unit SQ TID [facility] Last Admin: 11/02/16 21:15 Dose: 5,000 unit Levofloxacin (Levaquin 750 Mg Premixed Ivpb -) 150 mls @ 150 mls/hr IVPB DAILY [facility] Vancomycin HCl 1,500 mg/ (Dextrose) 500 mls @ 250 mls/hr IVPB BID [facility] PRN Reason: Protocol Last Admin: 11/02/16 21:13 Dose: 250 mls/hr Influenza Virus Vaccine (Fluvirin) 45 mcg IM .ONCE ONE Stop: 11/02/16 20:24 Oseltamivir Phosphate (Tamiflu -) 75 mg PO BID [facility] Stop: 11/07/16 15:44 Last Admin: 11/02/16 21:13 Dose: 75 mg Polyethylene Glycol (Miralax (For Daily Use) -) 17 gm PO DAILY PRN PRN Reason: CONSTIPATION Valsartan (Diovan -) 80 mg PO DAILY [facility] Imaging - Results Chest X-ray: Report Reviewed, Image Reviewed Assessment/Plan 51M w/o PMH and Morbid Obesity (BMI 57) with no medical management since 1989' admitted with hypertensive crisis now with hypoxic respiratory insufficiency in the setting of possible CAP +/- flash pulmonary edema +/- CHF exacerbation. -Continue O2 support for O2 sat>92% -Consider BiPAP support if worsens -Continue CAP coverage with levaquin and Tamiflu -Continue diuresis -Continue antihypertensives -Cough suppresant prn -f/u cultures -CXR and ABG -Monitor BNP -Monitor UOP and electrolytes
[2016-11-02] MEDS ORDERED: INFLUENZA VACCINE 45 MCG/0.5 ML (MDV 16-17) IM ONE (23:30)
[2016-11-02] MEDS: ALBUTEROL SO4 0.083% IH SOL 2.5 MG/3 ML VIAL.NEB. NEB PRN (23:30)
[2016-11-03] MEDS: HEPARIN NA (PORCINE) 5,000 UNITS/ML 1ML VIAL SQ SCH ×3 (06:17→22:05)
[2016-11-03] MEDS: ALBUTEROL SO4 0.083% IH SOL 2.5 MG/3 ML VIAL.NEB. NEB PRN (07:00)
[2016-11-03] MEDS ORDERED: PT OWN MED DRAWER 7, Y5N ONE ×2 (08:20→21:43)
--- NOTE | 2016-11-03 08:47 | PN ---
Progress Note, Physician Chief Complaint: Events noted Dyspnea on exertion and cough Transferred to [facility] ICU yesterday for closer monitoring and management of respiratory status History of Present Illness: Patient was seen and examined. Awake and alert. Chart was reviewed Denies chest pain. Complains of shortness of breath with exertion. No palpitation (+) cough and congestion. - Current Medication List Current Medications: Active Medications Acetaminophen (Tylenol -) 650 mg PO Q6H PRN PRN Reason: FEVER OR PAIN Last Admin: 11/03/16 02:00 Dose: 650 mg Albuterol Sulfate (Ventolin 0.083% Nebulizer Soln -) 1 amp NEB Q4H PRN PRN Reason: SHORT OF BREATH/WHEEZING Last Admin: 11/03/16 07:00 Dose: 1 amp Aspirin (Asa -) 325 mg PO DAILY [facility] Carvedilol (Coreg -) 6.25 mg PO BID [facility] Last Admin: 11/02/16 21:15 Dose: 6.25 mg Diphenhydramine HCl (Benadryl -) 25 mg PO HS PRN PRN Reason: INSOMNIA Furosemide (Lasix Injection -) 40 mg IVPB DAILY [facility] Guaifenesin (Robitussin Dm -) 10 ml PO Q4H PRN PRN Reason: COUGH Heparin Sodium (Porcine) (Heparin -) 5,000 unit SQ TID [facility] Last Admin: 11/03/16 06:17 Dose: 5,000 unit Levofloxacin (Levaquin 750 Mg Premixed Ivpb -) 150 mls @ 150 mls/hr IVPB DAILY [facility] Vancomycin HCl 1,500 mg/ (Dextrose) 500 mls @ 250 mls/hr IVPB BID [facility] PRN Reason: Protocol Last Admin: 11/02/16 21:13 Dose: 250 mls/hr Oseltamivir Phosphate (Tamiflu -) 75 mg PO BID [facility] Stop: 11/07/16 15:44 Last Admin: 11/02/16 21:13 Dose: 75 mg Polyethylene Glycol (Miralax (For Daily Use) -) 17 gm PO DAILY PRN PRN Reason: CONSTIPATION Valsartan (Diovan -) 80 mg PO DAILY [facility] - Objective Vital Signs: Vital Signs Temperature 97.8 F 11/03/16 06:00 Pulse Rate 91 H 11/03/16 06:00 Respiratory Rate 22 11/03/16 06:00 Blood Pressure 151/110 11/03/16 06:00 O2 Sat by Pulse Oximetry (%) 95 11/02/16 20:13 Neck: Yes: Supple Cardiovascular: Yes: Regular Rate and Rhythm, S1, S2 Respiratory: Yes: Diminished, Rhonchi Gastrointestinal: Yes: Normal Bowel Sounds, Soft, Abdomen, Obese. No: Tenderness Edema: Yes Edema: LLE: Trace, RLE: Trace Additional Findings/Remarks: - Review of Systems Constitutional: denies: Chills, Fever Cardiovascular: reports: Shortness of Breath. denies: Chest Pain, Palpitations Respiratory: reports: Orthopnea, SOB, SOB on Exertion. denies: Cough, Hemoptysis, PND, Wheezing Gastrointestinal: denies: Abdominal Pain, Constipation, Diarrhea, Melena, Nausea , Rectal Bleeding, Vomiting Genitourinary: denies: Dysuria Musculoskeletal: denies: Joint Pain Neurological: denies: Dizziness, Headache, Seizure, Syncope Labs: CBC, BMP 11/02/16 16:00 11/02/16 16:00 Problem List - Problems (1) Acute on chronic diastolic (congestive) heart failure Code(s): I50.33 - ACUTE ON CHRONIC DIASTOLIC (CONGESTIVE) HEART FAILURE (2) Dyspnea on exertion Code(s): R06.09 - OTHER FORMS OF DYSPNEA (3) Elevated blood pressure Code(s): I10 - ESSENTIAL (PRIMARY) HYPERTENSION (4) Morbid obesity Code(s): E66.01 - MORBID (SEVERE) OBESITY DUE TO EXCESS CALORIES Qualifiers: Obesity type: unspecified obesity type Qualified Code(s): E66.01 - Morbid (severe) obesity due to excess calories (5) Obstructive sleep apnea Code(s): G47.33 - OBSTRUCTIVE SLEEP APNEA (ADULT) (PEDIATRIC) (6) Pneumonia Code(s): J18.9 - PNEUMONIA, UNSPECIFIED ORGANISM Qualifiers: Pneumonia type: due to unspecified organism Laterality: bilateral Lung location: lower lobe of lung Qualified Code(s): J18.9 - Pneumonia, unspecified organism Assessment/Plan 1. Acute on chronic diastolic failure with mildly decreased LV systolic function 2. Clinical presentation suggests pneumonia with respiratory distress 3. Hypertension 4. Morbid obesity 5. OSAS PLAN: 1. IV diuresis with monitoring renal function and electrolytes - IV Lasix 2. Continue Carvedilol 6.25 mg BID and Diovan 80 mg QD with uptitration as hemodynamics tolerate 3. Avoid NSAIDs 4. Will need sleep study at some point - can be done as outpatient 5. Antibiotic coverage 6. Continue present management as per Critical Care team 7. Tamiflu and Mucomyst Further plans are to follow Ralph Ford MD
[2016-11-03] MEDS: ASPIRIN 325 MG TABLET PO SCH (09:10)
[2016-11-03] MEDS: LEVOFLOXACIN 750 MG IVPB 150 ML IVPB SCH (09:10)
[2016-11-03] MEDS: OSELTAMIVIR PHOSPHATE 75 MG CAPSULE PO SCH ×2 (09:11→22:06)
[2016-11-03] MEDS: FUROSEMIDE 40 MG/4 ML INJECTABLE VIAL IVPB SCH (09:11)
[2016-11-03] MEDS: CARVEDILOL 6.25 MG TABLET (FP) PO SCH ×2 (09:11→22:05)
[2016-11-03] MEDS: VALSARTAN 80 MG TABLET (UD) PO SCH (09:11)
[2016-11-03] MEDS ORDERED: LEVOFLOXACIN 750 MG IVPB 150 ML IVPB SCH (10:00)
--- NOTE | 2016-11-03 10:55 | PN ---
Progress Note (short form) - Note Progress Note: alert breathing unchanged ventimask Vital Signs Period Temp Pulse Resp BP Sys/Da Silva Pulse Ox Last 24 Hr 97.6 F-98.9 F 73-91 15-24 136-169/89-110 92-95 cor-rrr lungs scattered rhonchi abd-soft,nt ext no edema CBC, BMP 11/02/16 16:00 11/02/16 16:00 Microbiology 11/01/16 20:00 Urine For Antigen Detection Legionella Antigen - Final 11/01/16 20:00 Urine For Antigen Detection Streptococcus pneumoniae Antigen (M - Final 11/01/16 20:00 Nasopharyngeal Swab Influenza Types A,B Antigen (TG) - Final 11/01/16 20:00 Nasopharyngeal Swab - Final Current Medications Acetaminophen (Tylenol -) 650 mg PO Q6H PRN PRN Reason: FEVER OR PAIN Last Admin: 11/03/16 02:00 Dose: 650 mg Albuterol Sulfate (Ventolin 0.083% Nebulizer Soln -) 1 amp NEB Q4H PRN PRN Reason: SHORT OF BREATH/WHEEZING Last Admin: 11/03/16 07:00 Dose: 1 amp Aspirin (Asa -) 325 mg PO DAILY [facility] Last Admin: 11/03/16 09:10 Dose: 325 mg Carvedilol (Coreg -) 6.25 mg PO BID [facility] Last Admin: 11/03/16 09:11 Dose: 6.25 mg Diphenhydramine HCl (Benadryl -) 25 mg PO HS PRN PRN Reason: INSOMNIA Furosemide (Lasix Injection -) 40 mg IVPB DAILY [facility] Last Admin: 11/03/16 09:11 Dose: 40 mg Guaifenesin (Robitussin Dm -) 10 ml PO Q4H PRN PRN Reason: COUGH Heparin Sodium (Porcine) (Heparin -) 5,000 unit SQ TID [facility] Last Admin: 11/03/16 06:17 Dose: 5,000 unit Levofloxacin (Levaquin 750 Mg Premixed Ivpb -) 150 mls @ 150 mls/hr IVPB DAILY [facility] Last Admin: 11/03/16 09:10 Dose: 150 mls/hr Vancomycin HCl 1,500 mg/ (Dextrose) 500 mls @ 250 mls/hr IVPB BID [facility] PRN Reason: Protocol Last Admin: 11/02/16 21:13 Dose: 250 mls/hr Oseltamivir Phosphate (Tamiflu -) 75 mg PO BID [facility] Stop: 11/07/16 15:44 Last Admin: 11/03/16 09:11 Dose: 75 mg Polyethylene Glycol (Miralax (For Daily Use) -) 17 gm PO DAILY PRN PRN Reason: CONSTIPATION Valsartan (Diovan -) 80 mg PO DAILY [facility] Last Admin: 11/03/16 09:11 Dose: 80 mg a/p pneumonia hypoxia chf/htn morbid obesity continue vanco/levaquin/tamiflu check vancomycin trough f/u labs f/u cultures
--- NOTE | 2016-11-03 11:08 | PN ---
Progress Note (short form) - Note Progress Note: Patient seen and examined in the ICU. Remains mildly tachypneic on 50% VM. Reports breathing is slightly better. (+) congested cough, finds it difficult to expectorate. No CP. Constitutional: Yes: Awake and alert, Mildly tachypneic on 50% VM Eyes: Yes: Conjunctiva Clear HENT: Yes: Normocephalic Neck: Yes: Other (obese, unable to assess JVD) Cardiovascular: Yes: Tachycardia Respiratory: Yes: Cough, Diminished at the bases, few scattered rhonchi Gastrointestinal: Yes: Abdomen, Obese Extremities: Yes: Other Edema: LLE: Trace, RLE: Trace Peripheral Pulses WNL: Yes Integumentary: Yes: WNL Neurological: Yes: WNL ...Motor Strength: WNL Psychiatric: Yes: WNL Labs: Laboratory Results - last 24 hr 11/02/16 11/02/16 11/02/16 16:00 16:00 16:00 WBC 13.6 H RBC 5.88 H Hgb 15.3 Hct 47.7 MCV 81.1 MCHC 32.1 RDW 14.7 Plt Count 175 MPV 9.2 ESR 15 Puncture Site ABG pH ABG pCO2 at Pt Temp ABG pO2 at Pt Temp ABG HCO3 ABG O2 Sat (Measured) ABG O2 Content ABG Base Excess Navid Test O2 Delivery Device Oxygen Flow Rate PEEP Sodium 141 Potassium 4.0 Chloride 103 Carbon Dioxide 27 Anion Gap 11 BUN 28 H Creatinine 1.2 Creat Clearance w eGFR > 60 Random Glucose 162 H Lactic Acid 1.939 Calcium 9.2 Total Bilirubin 0.3 AST 32 D ALT 42 H D Alkaline Phosphatase 96 H C-Reactive Protein 2.8 H B-Natriuretic Peptide Total Protein 6.8 Albumin 3.5 11/02/16 11/02/16 11/02/16 16:20 18:00 18:18 WBC RBC Hgb Hct MCV MCHC RDW Plt Count MPV ESR Puncture Site Md puncture ABG pH 7.42 ABG pCO2 at Pt Temp 36.7 ABG pO2 at Pt Temp 192.0 H* ABG HCO3 23.6 ABG O2 Sat (Measured) 99.3 H ABG O2 Content 21.6 ABG Base Excess 0.0 Navid Test Not applicable O2 Delivery Device Y Nasal Oxygen Flow Rate 5l PEEP 0.0 Sodium Potassium Chloride Carbon Dioxide Anion Gap BUN Creatinine Creat Clearance w eGFR Random Glucose Lactic Acid Calcium Total Bilirubin AST ALT Alkaline Phosphatase C-Reactive Protein B-Natriuretic Peptide 4809.77 H Total Protein Albumin Assessment/Plan Acute hypoxic respiratory Failure due to suspected CAP +/- CHF Morbid Obesity Hypertensive crisis Likely OSAS -Continue O2 support for O2 sat>92% -BiPAP support if worsens -Continue CAP coverage per ID -Tamiflu -Continue diuresis -Continue antihypertensives -f/u cultures -CXR in AM -ICU monitoring for tenuous respiratory status Dr Ramos CCTime 35"
[2016-11-03] MEDS: ACETYLCYSTEINE 20% 200MG/ML 4 ML VIAL *FOR ORAL / INH USE ONLY NEB SCH ×2 (11:50→21:00)
[2016-11-03] MEDS: ARFORMOTEROL TARTRATE 15 MCG/2 ML VIAL NEB SCH ×2 (11:50→21:00)
[2016-11-03] MEDS: VANCOMYCIN 1,500 MG in DEXTROSE 5%-WATER - 500 ML IVPB SCH ×2 (14:27→22:25)
--- NOTE | 2016-11-03 15:00 | PN ---
Progress Note, Physician Chief Complaint: Breathing more comftorbly post Mucomyst x 1. Cough w mucus decr in frequency and intensity. History of Present Illness: SEE Yesterdays note. In ICU w stble SAO2 @ 95% on VM 50%. Still PORTILLO and Fatigue and weakness. - Current Medication List Current Medications: Active Medications Acetaminophen (Tylenol -) 650 mg PO Q6H PRN PRN Reason: FEVER OR PAIN Last Admin: 11/03/16 02:00 Dose: 650 mg Acetylcysteine (Mucomyst 20 Oral / Inh Use Only*) 200 mg NEB BID [facility] Last Admin: 11/03/16 11:50 Dose: 200 mg Albuterol Sulfate (Ventolin 0.083% Nebulizer Soln -) 1 amp NEB Q4H PRN PRN Reason: SHORT OF BREATH/WHEEZING Last Admin: 11/03/16 07:00 Dose: 1 amp Arformoterol Tartrate (Brovana (Restricted To Pulmonology/Resp) -) 1 amp NEB BID [facility] Last Admin: 11/03/16 11:50 Dose: 1 amp Aspirin (Asa -) 325 mg PO DAILY [facility] Last Admin: 11/03/16 09:10 Dose: 325 mg Carvedilol (Coreg -) 6.25 mg PO BID [facility] Last Admin: 11/03/16 09:11 Dose: 6.25 mg Diphenhydramine HCl (Benadryl -) 25 mg PO HS PRN PRN Reason: INSOMNIA Furosemide (Lasix Injection -) 40 mg IVPB DAILY [facility] Last Admin: 11/03/16 09:11 Dose: 40 mg Guaifenesin (Robitussin Dm -) 10 ml PO Q4H PRN PRN Reason: COUGH Heparin Sodium (Porcine) (Heparin -) 5,000 unit SQ TID [facility] Last Admin: 11/03/16 14:26 Dose: 5,000 unit Levofloxacin (Levaquin 750 Mg Premixed Ivpb -) 150 mls @ 150 mls/hr IVPB DAILY [facility] Last Admin: 11/03/16 09:10 Dose: 150 mls/hr Vancomycin HCl 1,500 mg/ (Dextrose) 500 mls @ 250 mls/hr IVPB BID [facility] PRN Reason: Protocol Last Admin: 11/03/16 14:27 Dose: 250 mls/hr Oseltamivir Phosphate (Tamiflu -) 75 mg PO BID [facility] Stop: 11/07/16 15:44 Last Admin: 11/03/16 09:11 Dose: 75 mg Polyethylene Glycol (Miralax (For Daily Use) -) 17 gm PO DAILY PRN PRN Reason: CONSTIPATION Valsartan (Diovan -) 80 mg PO DAILY [facility] Last Admin: 11/03/16 09:11 Dose: 80 mg - Objective Vital Signs: Vital Signs Temperature 97.8 F 11/03/16 10:00 Pulse Rate 78 11/03/16 12:00 Respiratory Rate 17 11/03/16 12:00 Blood Pressure 147/77 11/03/16 12:00 O2 Sat by Pulse Oximetry (%) 95 11/02/16 20:13 Constitutional: Yes: Calm Neck: Yes: Supple Cardiovascular: Yes: Regular Rate and Rhythm, Tachycardia (NONE) Respiratory: Yes: Cough (w mucus), Dullness, On Venti-Mask (50%), Rhonchi ( LLBase), SOB on Exertion, Wheezes (NO) Gastrointestinal: Yes: Normal Bowel Sounds, Abdomen, Obese ...Rectal Exam: Yes: Deferred Edema: LLE: 1+, RLE: 1+ Peripheral Pulses: Left Doralis Pedis: 1+, Right Dorsalis Pedis: 1+ Integumentary: Yes: WNL Neurological: Yes: Alert, Oriented ...Motor Strength: WNL Psychiatric: Yes: Alert, Oriented Labs: CBC, BMP 11/02/16 16:00 11/02/16 16:00 INR, PTT INR 1.20 (0.82-1.09) 10/31/16 08:55 Laboratory Last Values WBC 13.6 K/mm3 (4.0-10.0) H 11/02/16 16:00 RBC 5.88 M/mm3 (4.00-5.60) H 11/02/16 16:00 Hgb 15.3 GM/dl (11.7-16.9) 11/02/16 16:00 Hct 47.7 % (35.4-49) 11/02/16 16:00 MCV 81.1 fl (80-96) 11/02/16 16:00 MCHC 32.1 g/dl (32.0-35.9) 11/02/16 16:00 RDW 14.7 % (11.9-15.9) 11/02/16 16:00 Plt Count 175 K/MM3 (134-434) 11/02/16 16:00 MPV 9.2 fl (7.5-11.1) 11/02/16 16:00 Neutrophils % 85.5 % (42.8-82.8) H 10/31/16 08:55 Lymphocytes % 8.2 % (8-40) 10/31/16 08:55 Monocytes % 4.5 % (3.8-10.2) 10/31/16 08:55 Eosinophils % 1.4 % (0-4.5) 10/31/16 08:55 Basophils % 0.4 % (0-2.0) 10/31/16 08:55 ESR 15 mm/hr (0-20) 11/02/16 16:00 INR 1.20 (0.82-1.09) 10/31/16 08:55 D-Dimer 2596 ng/ml (<200-235) H 10/31/16 08:55 Puncture Site Md puncture 11/02/16 18:18 ABG pH 7.42 (7.35-7.45) 11/02/16 18:18 ABG pCO2 at Pt Temp 36.7 mmHg (35-45) 11/02/16 18:18 ABG pO2 at Pt Temp 192.0 mmHg (80-100) H* 11/02/16 18:18 ABG HCO3 23.6 meq/L (22-26) 11/02/16 18:18 ABG O2 Sat (Measured) 99.3 % (90-98.9) H 11/02/16 18:18 ABG O2 Content 21.6 % vol (15-22) 11/02/16 18:18 ABG Base Excess 0.0 meq/l (-2-2) 11/02/16 18:18 Navid Test Not applicable 11/02/16 18:18 O2 Delivery Device Nasal 11/02/16 18:18 Oxygen Flow Rate 5l 11/02/16 18:18 PEEP 0.0 cmH2O 11/02/16 18:18 Sodium 141 mmol/L (136-145) 11/02/16 16:00 Potassium 4.0 mmol/L (3.5-5.1) 11/02/16 16:00 Chloride 103 mmol/L (98-107) 11/02/16 16:00 Carbon Dioxide 27 mmol/L (22-28) 11/02/16 16:00 Anion Gap 11 (8-16) 11/02/16 16:00 BUN 28 mg/dl (7-18) H 11/02/16 16:00 Creatinine 1.2 mg/dl (0.6-1.3) 11/02/16 16:00 Creat Clearance w eGFR > 60 (>60) 11/02/16 16:00 Random Glucose 162 mg/dl (74-106) H 11/02/16 16:00 Hemoglobin A1c % 5.8 % (4.8-6.0) D 11/01/16 08:35 Lactic Acid 1.939 mmol/L (0.4-2.0) 11/02/16 16:00 Calcium 9.2 mg/dl (8.4-10.2) 11/02/16 16:00 Magnesium 1.8 mg/dL (1.8-2.4) 11/01/16 08:35 Total Bilirubin 0.3 mg/dl (0.2-1.0) 11/02/16 16:00 AST 32 U/L (10-42) D 11/02/16 16:00 ALT 42 U/L (10-40) H D 11/02/16 16:00 Alkaline Phosphatase 96 U/L (32-92) H 11/02/16 16:00 Creatine Kinase 75 IU/L (38-174) 10/31/16 08:55 Troponin I < 0.03 ng/ml (0.03-0.50) L 10/31/16 08:55 C-Reactive Protein 2.8 MG/DL (0.00-0.3) H 11/02/16 16:00 B-Natriuretic Peptide 4809.77 pg/ml (5-125) H 11/02/16 16:20 Total Protein 6.8 g/dl (6.4-8.3) 11/02/16 16:00 Albumin 3.5 g/dl (3.5-5.0) 11/02/16 16:00 Triglycerides 72 mg/dl (35-160) 10/31/16 09:08 Cholesterol 174 mg/dl 10/31/16 09:08 Total LDL Cholesterol 114 mg/dl 10/31/16 09:08 HDL Cholesterol 46 mg/dl (29-89) 10/31/16 09:08 TSH 1.80 uIU/ml (0.358-3.74) 10/31/16 09:08 Free T4 1.29 ng/dl (0.76-1.16) H 10/31/16 09:08 BCS x 2 11-02-16 NRG Legionella Final NEG Pneumococ Final NEG Influenza A/B NEG - ....Imaging Chest X-ray: Report Reviewed (progressive perihilar infiltrate consider CT If Cont to progress) Problem List - Problems (1) Acute on chronic diastolic (congestive) heart failure Assessment/Plan: Clinically improved on IV diuretics and antihypertensives - defer to Cardio. BNP Trending down. Code(s): I50.33 - ACUTE ON CHRONIC DIASTOLIC (CONGESTIVE) HEART FAILURE (2) Dyspnea on exertion Assessment/Plan: sudden onset performing his usual level of activity; probably decompensated from possible subclinical diastolic failure. It is now complicated by B/L PNA. SEE notes. Code(s): R06.09 - OTHER FORMS OF DYSPNEA (3) Elevated blood pressure Assessment/Plan: stable on meds. Code(s): I10 - ESSENTIAL (PRIMARY) HYPERTENSION (4) Hypertensive urgency Assessment/Plan: RESOLVED Code(s): I10 - ESSENTIAL (PRIMARY) HYPERTENSION (5) Morbid obesity Assessment/Plan: BMI 57- Most likely a major contributing factor to HTN and The Urgent event. NEEDS to addresed in the outpt setting. Pt Is a Good candidate for Bariatric Surgery IF Cardiac Clearance is granted. Code(s): E66.01 - MORBID (SEVERE) OBESITY DUE TO EXCESS CALORIES Qualifiers: Obesity type: unspecified obesity type Qualified Code(s): E66.01 - Morbid (severe) obesity due to excess calories (6) Obstructive sleep apnea Assessment/Plan: needs Sleep Study in the Outpt setting for confirmed Dx and CPAP settings. Code(s): G47.33 - OBSTRUCTIVE SLEEP APNEA (ADULT) (PEDIATRIC) (7) Bilateral pneumonia Assessment/Plan: Perihialr infiltrates in CXK 11-02-16; s/p Mucomyst x 1 -improved breathinhng- 505 VM, Vanco/Levaquin /Tamiflu. Pulm and ID On Board. Code(s): J18.9 - PNEUMONIA, UNSPECIFIED ORGANISM (8) Hyperglycemia Assessment/Plan: assoc w Acute illness; Hgba1c 5.9% C/W w Pre Diabetes. Code(s): R73.9 - HYPERGLYCEMIA, UNSPECIFIED
[2016-11-04 06:15] LABS: BASOPHIL 0.4 % (0-2.0); EOSINOPHIL 3.5 % (0-4.5); MCH 26.7 pg (25.7-33.7); MCHC 32.8 g/dl (32.0-35.9); MEAN CELL VOLUME 81.4 fl (80-96); MEAN PLT VOLUME 9.1 fl (7.5-11.1); NEUTROPHILS 74.6 % (42.8-82.8); PLATELET COUNT 151 K/MM3 (134-434); RDW 15.1 % (11.9-15.9); WHITE BLOOD COUNT 12.2 K/mm3 (4.0-10.0)
[2016-11-04] MEDS: HEPARIN NA (PORCINE) 5,000 UNITS/ML 1ML VIAL SQ SCH ×3 (06:31→21:26)
[2016-11-04 07:01] LABS: ALBUMIN 2.8 g/dl (3.4-5.0); ALK PHOS 88 U/L (45-117); ANION GAP 11 (8-16); BILIRUBIN,TOTAL 0.9 mg/dL (0.2-1.0); CALCIUM 8.5 mg/dL (8.5-10.1); CO2 30 mmol/L (21-32); GLUCOSE,RANDOM 121 mg/dL (74-106); MAGNESIUM 2.4 mg/dL (1.8-2.4); PHOSPHOROUS 4.5 mg/dL (2.5-4.9); SGOT/AST 16 U/L (15-37); SGPT/ALT 40 U/L (12-78); TOT PROT 5.8 g/dl (6.4-8.2)
[2016-11-04] MEDS ORDERED: PT OWN MED DRAWER 7, Y5N ONE ×2 (08:35→21:23)
--- NOTE | 2016-11-04 09:16 | PN ---
Progress Note, Physician Chief Complaint: ID Some improvement since admission - Current Medication List Current Medications: Active Medications Acetaminophen (Tylenol -) 650 mg PO Q6H PRN PRN Reason: FEVER OR PAIN Last Admin: 11/03/16 02:00 Dose: 650 mg Acetylcysteine (Mucomyst 20 Oral / Inh Use Only*) 200 mg NEB BID [facility] Last Admin: 11/03/16 21:00 Dose: 200 mg Albuterol Sulfate (Ventolin 0.083% Nebulizer Soln -) 1 amp NEB Q4H PRN PRN Reason: SHORT OF BREATH/WHEEZING Last Admin: 11/03/16 07:00 Dose: 1 amp Arformoterol Tartrate (Brovana (Restricted To Pulmonology/Resp) -) 1 amp NEB BID [facility] Last Admin: 11/03/16 21:00 Dose: 1 amp Aspirin (Asa -) 325 mg PO DAILY [facility] Last Admin: 11/03/16 09:10 Dose: 325 mg Carvedilol (Coreg -) 6.25 mg PO BID [facility] Last Admin: 11/03/16 22:05 Dose: 6.25 mg Diphenhydramine HCl (Benadryl -) 25 mg PO HS PRN PRN Reason: INSOMNIA Furosemide (Lasix Injection -) 40 mg IVPB DAILY [facility] Last Admin: 11/03/16 09:11 Dose: 40 mg Guaifenesin (Robitussin Dm -) 10 ml PO Q4H PRN PRN Reason: COUGH Last Admin: 11/03/16 22:10 Dose: 10 ml Heparin Sodium (Porcine) (Heparin -) 5,000 unit SQ TID [facility] Last Admin: 11/04/16 06:31 Dose: 5,000 unit Levofloxacin (Levaquin 750 Mg Premixed Ivpb -) 150 mls @ 150 mls/hr IVPB DAILY [facility] Last Admin: 11/03/16 09:10 Dose: 150 mls/hr Vancomycin HCl 1,500 mg/ (Dextrose) 500 mls @ 250 mls/hr IVPB BID [facility] PRN Reason: Protocol Last Admin: 11/03/16 22:25 Dose: 250 mls/hr Oseltamivir Phosphate (Tamiflu -) 75 mg PO BID [facility] Stop: 11/07/16 15:44 Last Admin: 11/03/16 22:06 Dose: 75 mg Polyethylene Glycol (Miralax (For Daily Use) -) 17 gm PO DAILY PRN PRN Reason: CONSTIPATION Valsartan (Diovan -) 80 mg PO DAILY [facility] Last Admin: 11/03/16 09:11 Dose: 80 mg - Objective Vital Signs: Vital Signs Temperature 98.2 F 11/04/16 06:00 Pulse Rate 70 11/04/16 06:00 Respiratory Rate 25 H 11/04/16 06:00 Blood Pressure 135/87 11/04/16 06:00 O2 Sat by Pulse Oximetry (%) 95 11/02/16 20:13 Constitutional: Yes: Mild Distress HENT: Yes: WNL, Atraumatic Neck: Yes: WNL, Supple Cardiovascular: Yes: S1, S2. No: Regular Rate and Rhythm Respiratory: Yes: WNL, Regular, CTA Bilaterally Gastrointestinal: Yes: WNL, Normal Bowel Sounds, Soft. No: Tenderness Edema: No Labs: CBC, BMP 11/04/16 05:00 11/04/16 05:00 INR, PTT INR 1.20 (0.82-1.09) 10/31/16 08:55 Assessment/Plan Microbiology 11/01/16 20:00 Urine For Antigen Detection Legionella Antigen - Final 11/01/16 20:00 Urine For Antigen Detection Streptococcus pneumoniae Antigen (M - Final 11/01/16 20:00 Nasopharyngeal Swab Influenza Types A,B Antigen (TG) - Final 11/01/16 20:00 Nasopharyngeal Swab - Final 11/02/16 16:20 Blood - Peripheral Venous Blood Culture - Preliminary NO GROWTH OBTAINED AFTER 24 HOURS, INCUBATION TO CONTINUE FOR 4 DAYS. 11/02/16 16:20 Blood - Peripheral Venous Blood Culture - Preliminary NO GROWTH OBTAINED AFTER 24 HOURS, INCUBATION TO CONTINUE FOR 4 DAYS. Laboratory Tests 11/04/16 11/04/16 05:00 05:00 WBC 12.2 H Hgb 13.4 Hct 40.7 Plt Count 151 BUN 27 H Creat Clearance w eGFR > 60 Assessment Morbid obesity Respiratory failure Superimposed respiratory tract infection Plan Continue antiviral and Levofloxacin Stop Vancomycin Lorri SCHMIDT
[2016-11-04] MEDS: LEVOFLOXACIN 750 MG IVPB 150 ML IVPB SCH (09:57)
[2016-11-04] MEDS: ASPIRIN 325 MG TABLET PO SCH (09:57)
[2016-11-04] MEDS: FUROSEMIDE 40 MG/4 ML INJECTABLE VIAL IVPB SCH (09:58)
[2016-11-04] MEDS: OSELTAMIVIR PHOSPHATE 75 MG CAPSULE PO SCH ×2 (09:59→21:27)
[2016-11-04] MEDS: ACETYLCYSTEINE 20% 200MG/ML 4 ML VIAL *FOR ORAL / INH USE ONLY NEB SCH ×2 (10:00→21:59)
[2016-11-04] MEDS: ARFORMOTEROL TARTRATE 15 MCG/2 ML VIAL NEB SCH ×2 (10:00→21:59)
[2016-11-04] MEDS: VALSARTAN 80 MG TABLET (UD) PO SCH (10:01)
[2016-11-04] MEDS: CARVEDILOL 6.25 MG TABLET (FP) PO SCH ×2 (10:02→21:26)
--- NOTE | 2016-11-04 11:01 | PN ---
Progress Note, Physician History of Present Illness: Dyspnea slowly improving. - Current Medication List Current Medications: Active Medications Acetaminophen (Tylenol -) 650 mg PO Q6H PRN PRN Reason: FEVER OR PAIN Last Admin: 11/03/16 02:00 Dose: 650 mg Acetylcysteine (Mucomyst 20 Oral / Inh Use Only*) 200 mg NEB BID [facility] Last Admin: 11/03/16 21:00 Dose: 200 mg Albuterol Sulfate (Ventolin 0.083% Nebulizer Soln -) 1 amp NEB Q4H PRN PRN Reason: SHORT OF BREATH/WHEEZING Last Admin: 11/03/16 07:00 Dose: 1 amp Arformoterol Tartrate (Brovana (Restricted To Pulmonology/Resp) -) 1 amp NEB BID [facility] Last Admin: 11/03/16 21:00 Dose: 1 amp Aspirin (Asa -) 325 mg PO DAILY [facility] Last Admin: 11/04/16 09:57 Dose: 325 mg Carvedilol (Coreg -) 6.25 mg PO BID [facility] Last Admin: 11/04/16 10:02 Dose: 6.25 mg Diphenhydramine HCl (Benadryl -) 25 mg PO HS PRN PRN Reason: INSOMNIA Furosemide (Lasix Injection -) 40 mg IVPB DAILY [facility] Last Admin: 11/04/16 09:58 Dose: 40 mg Guaifenesin (Robitussin Dm -) 10 ml PO Q4H PRN PRN Reason: COUGH Last Admin: 11/03/16 22:10 Dose: 10 ml Heparin Sodium (Porcine) (Heparin -) 5,000 unit SQ TID [facility] Last Admin: 11/04/16 06:31 Dose: 5,000 unit Levofloxacin (Levaquin 750 Mg Premixed Ivpb -) 150 mls @ 150 mls/hr IVPB DAILY [facility] Last Admin: 11/04/16 09:57 Dose: 150 mls/hr Oseltamivir Phosphate (Tamiflu -) 75 mg PO BID [facility] Stop: 11/07/16 15:44 Last Admin: 11/04/16 09:59 Dose: 75 mg Polyethylene Glycol (Miralax (For Daily Use) -) 17 gm PO DAILY PRN PRN Reason: CONSTIPATION Valsartan (Diovan -) 80 mg PO DAILY [facility] Last Admin: 11/04/16 10:01 Dose: 80 mg - Objective Vital Signs: Vital Signs Temperature 98.2 F 11/04/16 06:00 Pulse Rate 70 11/04/16 06:00 Respiratory Rate 25 H 11/04/16 06:00 Blood Pressure 135/87 11/04/16 06:00 O2 Sat by Pulse Oximetry (%) 95 11/02/16 20:13 Constitutional: Yes: No Distress, Calm Neck: Yes: Supple Cardiovascular: Yes: Regular Rate and Rhythm Respiratory: Yes: Regular, Diminished, On Nasal O2 Gastrointestinal: Yes: Normal Bowel Sounds, Soft, Abdomen, Obese Edema: Yes Edema: LLE: Trace, RLE: Trace Labs: CBC, BMP 11/04/16 05:00 11/04/16 05:00 INR, PTT INR 1.20 (0.82-1.09) 10/31/16 08:55 - ....Imaging Chest X-ray: Report Reviewed (Residual left perihilar infiltrate) Problem List - Problems (1) Acute on chronic diastolic (congestive) heart failure Code(s): I50.33 - ACUTE ON CHRONIC DIASTOLIC (CONGESTIVE) HEART FAILURE (2) Hypertensive urgency Code(s): I10 - ESSENTIAL (PRIMARY) HYPERTENSION (3) Dyspnea on exertion Code(s): R06.09 - OTHER FORMS OF DYSPNEA (4) Morbid obesity Code(s): E66.01 - MORBID (SEVERE) OBESITY DUE TO EXCESS CALORIES Qualifiers: Obesity type: unspecified obesity type Qualified Code(s): E66.01 - Morbid (severe) obesity due to excess calories (5) Obstructive sleep apnea Code(s): G47.33 - OBSTRUCTIVE SLEEP APNEA (ADULT) (PEDIATRIC) Assessment/Plan 1. Acute on chronic diastolic failure with mildly decreased LV systolic function improving 2. Respiratory failure referable to pneumonia improving 3. Hypertension 4. Morbid obesity 5. OSAS PLAN: 1. Lasix 40 IV qd with monitoring renal function and electrolytes 2. Continue ASA 325 qd, Carvedilol 6.25 mg BID and Diovan 80 mg QD with uptitration as hemodynamics tolerate 3. Avoid NSAIDs 4. Will need sleep study at some point - can be done as outpatient 5. Antibiotic coverage per ID 6. BD, Tamiflu and Mucomyst 7. DVT prophylaxis
[2016-11-04] MEDS ORDERED: diphenhydrAMINE HCL 25 MG CAPSULE (FP) PO PRN (12:27)
[2016-11-04] MEDS ORDERED: ALBUTEROL SO4 0.083% IH SOL 2.5 MG/3 ML VIAL.NEB. NEB PRN (12:27)
[2016-11-04] MEDS ORDERED: ACETAMINOPHEN 325 MG TABLET (FP) PO PRN (12:27)
[2016-11-04] MEDS ORDERED: POLYETHYLENE GLYCOL 3350 119 GM BTL PO PRN (12:27)
--- NOTE | 2016-11-04 13:05 | PN ---
Teaching Attending Note Name of Resident: Bhargav Vásquez ATTENDING PHYSICIAN STATEMENT I saw and evaluated the patient. I reviewed the resident's note and discussed the case with the resident. I agree with the resident's findings and plan as documented. SUBJECTIVE: Patient seen and examined in the ICU. Less tachypneic today. On VM O2. Reports breathing is improving. (+) congested cough. No CP. Intake & Output 11/01/16 11/02/16 11/03/16 11/04/16 23:59 23:59 23:59 23:59 Intake Total 3437 056 6892 Output Total 6143 928 5183 550 Balance -5 0 2500 -550 Weight 418 lb 8 oz 417 lb 14.4 oz 427 lb 5 oz 421 lb 15.436 oz Last Vital Signs Temp Pulse Resp BP Pulse Ox 98.2 F 78 25 H 135/87 94 L 11/04/16 06:00 11/04/16 11:21 11/04/16 06:00 11/04/16 06:00 11/04/16 11:21 Active Medications Acetaminophen (Tylenol -) 650 mg PO Q6H PRN PRN Reason: FEVER OR PAIN Acetylcysteine (Mucomyst 20 Oral / Inh Use Only*) 200 mg NEB BID [facility] Albuterol Sulfate (Ventolin 0.083% Nebulizer Soln -) 1 amp NEB Q4H PRN PRN Reason: SHORT OF BREATH/WHEEZING Arformoterol Tartrate (Brovana (Restricted To Pulmonology/Resp) -) 1 amp NEB BID [facility] Aspirin (Asa -) 325 mg PO DAILY [facility] Carvedilol (Coreg -) 6.25 mg PO BID [facility] Diphenhydramine HCl (Benadryl -) 25 mg PO HS PRN PRN Reason: INSOMNIA Furosemide (Lasix Injection -) 40 mg IVPB DAILY [facility] Guaifenesin (Robitussin Dm -) 10 ml PO Q4H PRN PRN Reason: COUGH Heparin Sodium (Porcine) (Heparin -) 5,000 unit SQ TID [facility] Levofloxacin (Levaquin 750 Mg Premixed Ivpb -) 150 mls @ 150 mls/hr IVPB DAILY [facility] Oseltamivir Phosphate (Tamiflu -) 75 mg PO BID [facility] Stop: 11/07/16 15:44 Polyethylene Glycol (Miralax (For Daily Use) -) 17 gm PO DAILY PRN PRN Reason: CONSTIPATION Valsartan (Diovan -) 80 mg PO DAILY [facility] Constitutional: Yes: Awake and alert Eyes: Yes: Conjunctiva Clear HENT: Yes: Normocephalic Neck: Yes: Other (obese) Cardiovascular: Yes: S1S2 Respiratory: Yes: Cough, Diminished at the bases, few scattered rhonchi Gastrointestinal: Yes: Abdomen, Obese Extremities: Yes: Other Edema: LLE: Trace, RLE: Trace Peripheral Pulses WNL: Yes Integumentary: Yes: WNL Neurological: Yes: WNL ...Motor Strength: WNL Psychiatric: Yes: WNL Labs: Laboratory Results - last 24 hr 11/04/16 11/04/16 05:00 05:00 WBC 12.2 H RBC 5.00 Hgb 13.4 Hct 40.7 MCV 81.4 MCHC 32.8 RDW 15.1 Plt Count 151 MPV 9.1 Neutrophils % 74.6 Lymphocytes % 14.0 D Monocytes % 7.5 Eosinophils % 3.5 D Basophils % 0.4 Sodium 142 Potassium 3.9 Chloride 101 Carbon Dioxide 30 Anion Gap 11 BUN 27 H Creatinine 1.0 Creat Clearance w eGFR > 60 Random Glucose 121 H Calcium 8.5 Phosphorus 4.5 Magnesium 2.4 D Total Bilirubin 0.9 AST 16 ALT 40 Alkaline Phosphatase 88 Total Protein 5.8 L Albumin 2.8 L Assessment/Plan Acute hypoxic respiratory Failure due to suspected CAP +/- CHF Morbid Obesity Hypertensive crisis Likely OSAS -Continue O2 support for O2 sat>92% -BiPAP support if worsens -Continue CAP coverage per ID -Tamiflu -Continue diuresis -Continue antihypertensives -Floor -Will need formal sleep apnea workup as an outpatient Dr Ramos CCTime 35"
--- NOTE | 2016-11-04 14:24 | PN ---
Progress Note, Physician Chief Complaint: Breathing more comfortably; tolerating Mucomyst BID well; VM changed to 4L NC w SAO2 @ 94%. No C ain No Parethsia or numbness or focal waekness or lightheadedness. History of Present Illness: SEE above - Transfered plan to [facility] today. - Current Medication List Current Medications: Active Medications Acetaminophen (Tylenol -) 650 mg PO Q6H PRN PRN Reason: FEVER OR PAIN Acetylcysteine (Mucomyst 20 Oral / Inh Use Only*) 200 mg NEB BID [facility] Albuterol Sulfate (Ventolin 0.083% Nebulizer Soln -) 1 amp NEB Q4H PRN PRN Reason: SHORT OF BREATH/WHEEZING Arformoterol Tartrate (Brovana (Restricted To Pulmonology/Resp) -) 1 amp NEB BID [facility] Aspirin (Asa -) 325 mg PO DAILY [facility] Carvedilol (Coreg -) 6.25 mg PO BID REAG[facility] Diphenhydramine HCl (Benadryl -) 25 mg PO HS PRN PRN Reason: INSOMNIA Furosemide (Lasix Injection -) 40 mg IVPB DAILY [facility] Guaifenesin (Robitussin Dm -) 10 ml PO Q4H PRN PRN Reason: COUGH Heparin Sodium (Porcine) (Heparin -) 5,000 unit SQ TID [facility] Levofloxacin (Levaquin 750 Mg Premixed Ivpb -) 150 mls @ 150 mls/hr IVPB DAILY [facility] Oseltamivir Phosphate (Tamiflu -) 75 mg PO BID [facility] Stop: 11/07/16 15:44 Polyethylene Glycol (Miralax (For Daily Use) -) 17 gm PO DAILY PRN PRN Reason: CONSTIPATION Valsartan (Diovan -) 80 mg PO DAILY [facility] - Objective Vital Signs: Vital Signs Temperature 98.1 F 11/04/16 10:00 Pulse Rate 76 11/04/16 12:00 Respiratory Rate 20 11/04/16 12:00 Blood Pressure 125/75 11/04/16 12:00 O2 Sat by Pulse Oximetry (%) 94 L 11/04/16 11:21 Constitutional: Yes: No Distress, Calm Neck: Yes: Supple Cardiovascular: Yes: Regular Rate and Rhythm, Tachycardia (NONE), Bruit (NONE), JVD (NONE), Murmur (NONE) Respiratory: Yes: CTA Bilaterally, On Nasal O2 (4L w SAO2 94-95%), Rales (none) , Rhonchi (none), Tachypnea (none), Wheezes (none) Gastrointestinal: Yes: Normal Bowel Sounds, Abdomen, Obese, Tenderness (none) Genitourinary: Yes: WNL Extremities: Yes: WNL Edema: LLE: 1+, RLE: 1+ Peripheral Pulses WNL: Yes Peripheral Pulses: Left Doralis Pedis: 1+, Right Dorsalis Pedis: 1+ Integumentary: Yes: WNL Neurological: Yes: Alert, Oriented ...Motor Strength: WNL Psychiatric: Yes: Alert, Oriented Labs: CBC, BMP 11/04/16 05:00 11/04/16 05:00 INR, PTT INR 1.20 (0.82-1.09) 10/31/16 08:55 Laboratory Last Values WBC 12.2 K/mm3 (4.0-10.0) H 11/04/16 05:00 RBC 5.00 M/mm3 (4.00-5.60) 11/04/16 05:00 Hgb 13.4 GM/dL (11.7-16.9) 11/04/16 05:00 Hct 40.7 % (35.4-49) 11/04/16 05:00 MCV 81.4 fl (80-96) 11/04/16 05:00 MCHC 32.8 g/dl (32.0-35.9) 11/04/16 05:00 RDW 15.1 % (11.9-15.9) 11/04/16 05:00 Plt Count 151 K/MM3 (134-434) 11/04/16 05:00 MPV 9.1 fl (7.5-11.1) 11/04/16 05:00 Neutrophils % 74.6 % (42.8-82.8) 11/04/16 05:00 Lymphocytes % 14.0 % (8-40) D 11/04/16 05:00 Monocytes % 7.5 % (3.8-10.2) 11/04/16 05:00 Eosinophils % 3.5 % (0-4.5) D 11/04/16 05:00 Basophils % 0.4 % (0-2.0) 11/04/16 05:00 ESR 15 mm/hr (0-20) 11/02/16 16:00 INR 1.20 (0.82-1.09) 10/31/16 08:55 D-Dimer 2596 ng/ml (<200-235) H 10/31/16 08:55 Puncture Site Md puncture 11/02/16 18:18 ABG pH 7.42 (7.35-7.45) 11/02/16 18:18 ABG pCO2 at Pt Temp 36.7 mmHg (35-45) 11/02/16 18:18 ABG pO2 at Pt Temp 192.0 mmHg (80-100) H* 11/02/16 18:18 ABG HCO3 23.6 meq/L (22-26) 11/02/16 18:18 ABG O2 Sat (Measured) 99.3 % (90-98.9) H 11/02/16 18:18 ABG O2 Content 21.6 % vol (15-22) 11/02/16 18:18 ABG Base Excess 0.0 meq/l (-2-2) 11/02/16 18:18 Navid Test Not applicable 11/02/16 18:18 O2 Delivery Device Nasal 11/02/16 18:18 Oxygen Flow Rate 5l 11/02/16 18:18 PEEP 0.0 cmH2O 11/02/16 18:18 Sodium 142 mmol/L (136-145) 11/04/16 05:00 Potassium 3.9 mmol/L (3.5-5.1) 11/04/16 05:00 Chloride 101 mmol/L (98-107) 11/04/16 05:00 Carbon Dioxide 30 mmol/L (21-32) 11/04/16 05:00 Anion Gap 11 (8-16) 11/04/16 05:00 BUN 27 mg/dL (7-18) H 11/04/16 05:00 Creatinine 1.0 mg/dL (0.7-1.3) 11/04/16 05:00 Creat Clearance w eGFR > 60 (>60) 11/04/16 05:00 Random Glucose 121 mg/dL (74-106) H 11/04/16 05:00 Hemoglobin A1c % 5.8 % (4.8-6.0) D 11/01/16 08:35 Lactic Acid 1.939 mmol/L (0.4-2.0) 11/02/16 16:00 Calcium 8.5 mg/dL (8.5-10.1) 11/04/16 05:00 Phosphorus 4.5 mg/dL (2.5-4.9) 11/04/16 05:00 Magnesium 2.4 mg/dL (1.8-2.4) D 11/04/16 05:00 Total Bilirubin 0.9 mg/dL (0.2-1.0) 11/04/16 05:00 AST 16 U/L (15-37) 11/04/16 05:00 ALT 40 U/L (12-78) 11/04/16 05:00 Alkaline Phosphatase 88 U/L (45-117) 11/04/16 05:00 Creatine Kinase 75 IU/L (38-174) 10/31/16 08:55 Troponin I < 0.03 ng/ml (0.03-0.50) L 10/31/16 08:55 C-Reactive Protein 2.8 MG/DL (0.00-0.3) H 11/02/16 16:00 B-Natriuretic Peptide 4809.77 pg/ml (5-125) H 11/02/16 16:20 Total Protein 5.8 g/dl (6.4-8.2) L 11/04/16 05:00 Albumin 2.8 g/dl (3.4-5.0) L 11/04/16 05:00 Triglycerides 72 mg/dl (35-160) 10/31/16 09:08 Cholesterol 174 mg/dl 10/31/16 09:08 Total LDL Cholesterol 114 mg/dl 10/31/16 09:08 HDL Cholesterol 46 mg/dl (29-89) 10/31/16 09:08 TSH 1.80 uIU/ml (0.358-3.74) 10/31/16 09:08 Free T4 1.29 ng/dl (0.76-1.16) H 10/31/16 09:08 11/02 - BCS x 2 NEG x 24 hr 11/04 - WBC Trending to NL range 11/04 - MG 2.4 Phos 4 - ....Imaging Chest X-ray: Report Reviewed (11/04 No Change from 11/03 LEFT Perihilar Infiltrate ) Problem List - Problems (1) Acute on chronic diastolic (congestive) heart failure Assessment/Plan: Clinically improved on IV diuretics and antihypertensives - IV Lasix 40mg/d , Carvedilol 6.25 mg BID and Diovan 80mg/ d - Appreciate Cardio input. BNP Trending down; will follow. Code(s): I50.33 - ACUTE ON CHRONIC DIASTOLIC (CONGESTIVE) HEART FAILURE (2) Dyspnea on exertion Assessment/Plan: sudden onset performing his usual level of activity; probably decompensated from possible subclinical diastolic failure. It is now complicated by B/L PNA. SEE notes. Improving w present Txmt - IV Lasiv, AARB, BB, AntBx, Antiviarl, Mucomyst, B adrenergic neb and O2. Cardio, Pulm and ID on Board. Code(s): R06.09 - OTHER FORMS OF DYSPNEA (3) Elevated blood pressure Assessment/Plan: stable on meds. Code(s): I10 - ESSENTIAL (PRIMARY) HYPERTENSION (4) Morbid obesity Assessment/Plan: BMI 57- Most likely a major contributing factor to HTN and The Urgent event. NEEDS to addresed in the outpt setting. Pt Is a Good candidate for Bariatric Surgery IF Cardiac Clearance is granted. Code(s): E66.01 - MORBID (SEVERE) OBESITY DUE TO EXCESS CALORIES Qualifiers: Obesity type: unspecified obesity type Qualified Code(s): E66.01 - Morbid (severe) obesity due to excess calories (5) Obstructive sleep apnea Assessment/Plan: needs Sleep Study in the Outpt setting for confirmed Dx and CPAP settings. Code(s): G47.33 - OBSTRUCTIVE SLEEP APNEA (ADULT) (PEDIATRIC) (6) Bilateral pneumonia Assessment/Plan: Perihialr/ Left infiltrates in CXK 11-04-16; s/p Mucomyst BID -improved breathing - Levaquin /Tamiflu- DC Vanco per ID.. Pulm on Board as well. Code(s): J18.9 - PNEUMONIA, UNSPECIFIED ORGANISM (7) Hyperglycemia Assessment/Plan: assoc w Acute illness; Hgba1c 5.9% C/W w Pre Diabetes. Consider Metformin post DC Home- Pt reported will register at [facility] in [facility]. Code(s): R73.9 - HYPERGLYCEMIA, UNSPECIFIED
--- NOTE | 2016-11-04 16:49 | PN ---
Physical Exam: SUBJECTIVE: Patient seen and examined at bedside in the ICU. He reported breathing much improved and no other complaints. Denies chest pain, fever, chills, n/v, bowel or urinary sx. OBJECTIVE: On ventimask 15L Vital Signs Period Temp Pulse Resp BP Sys/Da Silva Pulse Ox Last 24 Hr 98 F-98.2 F 70-79 17-27 118-154/75-104 94-95 GENERAL: The patient is awake, alert, and fully oriented, on ventimask 15L EYES: PERRL, extraocular movements intact, sclera anicteric, conjunctiva clear. . LUNGS: Breath sounds equal, clear to auscultation bilaterally, no wheezes, no crackles, no accessory muscle use. HEART: Regular rate and rhythm, S1, S2 without murmur, rub or gallop. ABDOMEN: Soft,obese, non-tender, nondistended, normoactive bowel sounds, no guarding, no rebound, no hepatosplenomegaly, no masses. EXTREMITIES: trace edema. Laboratory Results - last 24 hr 11/04/16 11/04/16 05:00 05:00 WBC 12.2 H RBC 5.00 Hgb 13.4 Hct 40.7 MCV 81.4 MCHC 32.8 RDW 15.1 Plt Count 151 MPV 9.1 Neutrophils % 74.6 Lymphocytes % 14.0 D Monocytes % 7.5 Eosinophils % 3.5 D Basophils % 0.4 Sodium 142 Potassium 3.9 Chloride 101 Carbon Dioxide 30 Anion Gap 11 BUN 27 H Creatinine 1.0 Creat Clearance w eGFR > 60 Random Glucose 121 H Calcium 8.5 Phosphorus 4.5 Magnesium 2.4 D Total Bilirubin 0.9 AST 16 ALT 40 Alkaline Phosphatase 88 Total Protein 5.8 L Albumin 2.8 L Active Medications Generic Name Dose Route Start Last Admin Trade Name Freq PRN Reason Stop Dose Admin Acetaminophen 650 mg 11/04/16 12:27 Tylenol - PO Q6H PRN FEVER OR PAIN Acetylcysteine 200 mg 11/04/16 22:00 Mucomyst 20 Oral / Inh Use Only* NEB BID REAGAN Albuterol Sulfate 1 amp 11/04/16 12:27 Ventolin 0.083% Nebulizer Soln - NEB Q4H PRN SHORT OF BREATH/WHEEZING Arformoterol Tartrate 1 amp 11/04/16 22:00 Brovana (Restricted To Pulmonology/Resp) - NEB BID REAG[facility] Aspirin 325 mg 11/05/16 10:00 Asa - PO DAILY [facility] Carvedilol 6.25 mg 11/04/16 22:00 Coreg - PO BID REAGAN Diphenhydramine HCl 25 mg 11/04/16 12:27 Benadryl - PO HS PRN INSOMNIA Furosemide 40 mg 11/05/16 10:00 Lasix Injection - IVPB DAILY [facility] Guaifenesin 10 ml 11/04/16 12:27 Robitussin Dm - PO Q4H PRN COUGH Heparin Sodium (Porcine) 5,000 unit 11/04/16 14:00 11/04/16 14:22 Heparin - SQ 5,000 unit TID REAGAN Administration Levofloxacin 150 mls @ 150 mls/hr 11/05/16 10:00 Levaquin 750 Mg Premixed Ivpb - IVPB DAILY [facility] Oseltamivir Phosphate 75 mg 11/04/16 22:00 Tamiflu - PO 11/07/16 15:44 BID [facility] Polyethylene Glycol 17 gm 11/04/16 12:27 Miralax (For Daily Use) - PO DAILY PRN CONSTIPATION Valsartan 80 mg 11/05/16 10:00 Diovan - PO DAILY [facility] Imaging CXR: Since a prior study of 11/02/2016, the heart size remains slightly enlarged with residual left perihilar infiltrate. No new infiltrates or pleural effusions have developed. IMPRESSION: No significant change ECHO (10/31): normal LVF, mild LVH, EF 60%, trace tri. regurg ASSESSMENT/PLAN: 51 yo M w/ h/o morbid obesity admitted to the ICU for acute hypoxic respiratory failure. Pulm: Acute hypoxic respiratory failure 2/2 CAP vs. CHF exacerbation - BiPAP PRN - maintain O2 sat >92% - Incentive spirometer - cont. diuresis with lasix 40mg IVPB ID: community acquired pneumonia - afrebile and WBC trending down - improving left perihilar infiltrate on CXR - cont. tamiflu 75mg BID and levaquin 750 mg daily Cardiac: HTN in the setting of underlying SONIA - admitted initially for hypertensive crisis - cont. coreg 6.25 PO BID, valsartan 80mg PO daily, lasix 40mg IVPB daily FEN - fluid not indicated - elevated BUN, will monitor - sodium restrict diet Prophylaxis - DVT: SCDs - GI: not indicated Disposition - transfer to med-surg Code status - Full code Visit type - Emergency Visit Emergency Visit: No - New Patient This patient is new to me today: Yes Date on this admission: 11/04/16 - Critical Care Critical Care patient: Yes Total Critical Care Time (in minutes): 45 Critical Care Statement: The care of this patient involved high complexity decision making to prevent further life threatening deterioration of the patient 's condition and/or to evalute & treat vital organ system(s) failure or risk of failure.
[2016-11-04] MEDS: guaiFENesin/D-METHORPHAN HB 10 ML UNIT-DOSE CUPS PO PRN (21:31)
[2016-11-05] MEDS: HEPARIN NA (PORCINE) 5,000 UNITS/ML 1ML VIAL SQ SCH ×3 (05:25→21:52)
[2016-11-05 05:51] LABS: BASOPHIL 0.4 % (0-2.0); EOSINOPHIL 4.2 % (0-4.5); MCH 26.7 pg (25.7-33.7); MCHC 32.9 g/dl (32.0-35.9); MEAN PLT VOLUME 9.5 fl (7.5-11.1); NEUTROPHILS 74.1 % (42.8-82.8); PLATELET COUNT 157 K/MM3 (134-434); RDW 14.9 % (11.9-15.9); WHITE BLOOD COUNT 12.2 K/mm3 (4.0-10.0)
[2016-11-05 06:17] LABS: ALBUMIN 2.8 g/dl (3.4-5.0); ANION GAP 9 (8-16); BILIRUBIN,TOTAL 0.6 mg/dL (0.2-1.0); CALCIUM 8.2 mg/dL (8.5-10.1); CO2 31 mmol/L (21-32); CREATININE 1.1 mg/dL (0.7-1.3); GLUCOSE,RANDOM 108 mg/dL (74-106); MAGNESIUM 2.2 mg/dL (1.8-2.4); PHOSPHOROUS 3.9 mg/dL (2.5-4.9); SGOT/AST 21 U/L (15-37); SGPT/ALT 55 U/L (12-78); TOT PROT 6.1 g/dl (6.4-8.2)
[2016-11-05 06:18] LABS: ALK PHOS 105 U/L (45-117)
--- NOTE | 2016-11-05 08:44 | PN ---
Progress Note (short form) - Note Progress Note: still with nonproductive cough feels better Vital Signs Period Temp Pulse Resp BP Sys/Da Silva Pulse Ox Last 24 Hr 97.3 F-98.1 F 74-86 20-25 92-150/69-88 94-96 cor-rrr lungs bilateral rhonchi abd soft, nt ext no edema CBC, BMP 11/05/16 05:00 11/05/16 05:00 Microbiology 11/02/16 16:20 Blood - Peripheral Venous Blood Culture - Preliminary NO GROWTH OBTAINED AFTER 48 HOURS, INCUBATION TO CONTINUE FOR 3 DAYS. 11/02/16 16:20 Blood - Peripheral Venous Blood Culture - Preliminary NO GROWTH OBTAINED AFTER 48 HOURS, INCUBATION TO CONTINUE FOR 3 DAYS. 11/01/16 20:00 Urine For Antigen Detection Legionella Antigen - Final 11/01/16 20:00 Urine For Antigen Detection Streptococcus pneumoniae Antigen (M - Final 11/01/16 20:00 Nasopharyngeal Swab Influenza Types A,B Antigen (TG) - Final 11/01/16 20:00 Nasopharyngeal Swab - Final cxray left perihilar infiltrate a/p
--- NOTE | 2016-11-05 08:47 | PN ---
Progress Note (short form) - Note Progress Note: still with nonproductive cough- but less, on nasal canulla feels better Vital Signs Period Temp Pulse Resp BP Sys/Da Silva Pulse Ox Last 24 Hr 97.3 F-98.1 F 74-86 20-25 92-150/69-88 94-96 cor-rrr lungs bilateral rhonchi abd soft, nt ext no edema CBC, BMP 11/05/16 05:00 11/05/16 05:00 Microbiology 11/02/16 16:20 Blood - Peripheral Venous Blood Culture - Preliminary NO GROWTH OBTAINED AFTER 48 HOURS, INCUBATION TO CONTINUE FOR 3 DAYS. 11/02/16 16:20 Blood - Peripheral Venous Blood Culture - Preliminary NO GROWTH OBTAINED AFTER 48 HOURS, INCUBATION TO CONTINUE FOR 3 DAYS. 11/01/16 20:00 Urine For Antigen Detection Legionella Antigen - Final 11/01/16 20:00 Urine For Antigen Detection Streptococcus pneumoniae Antigen (M - Final 11/01/16 20:00 Nasopharyngeal Swab Influenza Types A,B Antigen (TG) - Final 11/01/16 20:00 Nasopharyngeal Swab - Final cxray left perihilar infiltrate a/p respiratory failure-improved pneumonia- continue levaquin empiric tamiflu- droplet isolation htn morbid obesity chf osas
[2016-11-05] MEDS ORDERED: PT OWN MED DRAWER 7, Y5N ONE (08:55)
--- NOTE | 2016-11-05 09:15 | PN ---
Progress Note, Physician Chief Complaint: Events noted Dyspnea on exertion and cough persists Remains in ICU with periods of desaturation without O2 History of Present Illness: Patient was seen and examined. Awake and alert. Chart was reviewed Denies chest pain. Complains of shortness of breath with exertion. No palpitation (+) cough and congestion persists - Current Medication List Current Medications: Active Medications Acetaminophen (Tylenol -) 650 mg PO Q6H PRN PRN Reason: FEVER OR PAIN Acetylcysteine (Mucomyst 20 Oral / Inh Use Only*) 200 mg NEB BID [facility] Last Admin: 11/04/16 21:59 Dose: 200 mg Albuterol Sulfate (Ventolin 0.083% Nebulizer Soln -) 1 amp NEB Q4H PRN PRN Reason: SHORT OF BREATH/WHEEZING Arformoterol Tartrate (Brovana (Restricted To Pulmonology/Resp) -) 1 amp NEB BID [facility] Last Admin: 11/04/16 21:59 Dose: 1 amp Aspirin (Asa -) 325 mg PO DAILY [facility] Carvedilol (Coreg -) 6.25 mg PO BID [facility] Last Admin: 11/04/16 21:26 Dose: 6.25 mg Diphenhydramine HCl (Benadryl -) 25 mg PO HS PRN PRN Reason: INSOMNIA Furosemide (Lasix Injection -) 40 mg IVPB DAILY [facility] Guaifenesin (Robitussin Dm -) 10 ml PO Q4H PRN PRN Reason: COUGH Last Admin: 11/04/16 21:31 Dose: 10 ml Heparin Sodium (Porcine) (Heparin -) 5,000 unit SQ TID [facility] Last Admin: 11/05/16 05:25 Dose: 5,000 unit Levofloxacin (Levaquin 750 Mg Premixed Ivpb -) 150 mls @ 150 mls/hr IVPB DAILY [facility] Oseltamivir Phosphate (Tamiflu -) 75 mg PO BID [facility] Stop: 11/07/16 15:44 Last Admin: 11/04/16 21:27 Dose: 75 mg Polyethylene Glycol (Miralax (For Daily Use) -) 17 gm PO DAILY PRN PRN Reason: CONSTIPATION Valsartan (Diovan -) 80 mg PO DAILY [facility] - Objective Vital Signs: Vital Signs Temperature 98 F 11/05/16 05:45 Pulse Rate 78 11/05/16 05:45 Respiratory Rate 20 11/05/16 05:45 Blood Pressure 141/88 11/05/16 05:45 O2 Sat by Pulse Oximetry (%) 96 11/04/16 22:00 Neck: Yes: Supple Cardiovascular: Yes: Regular Rate and Rhythm, S1, S2 Respiratory: Yes: Diminished, Rhonchi (Scattered) Gastrointestinal: Yes: Normal Bowel Sounds, Soft, Abdomen, Obese. No: Tenderness Edema: Yes Edema: LLE: 1+, RLE: 1+ Additional Findings/Remarks: - Review of Systems Constitutional: denies: Chills, Fever Cardiovascular: reports: Shortness of Breath. denies: Chest Pain, Palpitations Respiratory: reports: Orthopnea, SOB, SOB on Exertion. denies: Cough, Hemoptysis, PND, Wheezing Gastrointestinal: denies: Abdominal Pain, Constipation, Diarrhea, Melena, Nausea , Rectal Bleeding, Vomiting Genitourinary: denies: Dysuria Musculoskeletal: denies: Joint Pain Neurological: denies: Dizziness, Headache, Seizure, Syncope Labs: CBC, BMP 11/05/16 05:00 11/05/16 05:00 Problem List - Problems (1) Acute on chronic diastolic (congestive) heart failure Code(s): I50.33 - ACUTE ON CHRONIC DIASTOLIC (CONGESTIVE) HEART FAILURE (2) Dyspnea on exertion Code(s): R06.09 - OTHER FORMS OF DYSPNEA (3) Elevated blood pressure Code(s): I10 - ESSENTIAL (PRIMARY) HYPERTENSION (4) Morbid obesity Code(s): E66.01 - MORBID (SEVERE) OBESITY DUE TO EXCESS CALORIES Qualifiers: Obesity type: unspecified obesity type Qualified Code(s): E66.01 - Morbid (severe) obesity due to excess calories (5) Obstructive sleep apnea Code(s): G47.33 - OBSTRUCTIVE SLEEP APNEA (ADULT) (PEDIATRIC) (6) Pneumonia Code(s): J18.9 - PNEUMONIA, UNSPECIFIED ORGANISM Qualifiers: Pneumonia type: due to unspecified organism Laterality: bilateral Lung location: lower lobe of lung Qualified Code(s): J18.9 - Pneumonia, unspecified organism Assessment/Plan 1. Acute on chronic diastolic failure with mildly decreased LV systolic function 2. Clinical presentation suggests pneumonia with respiratory distress 3. Hypertension 4. Morbid obesity 5. OSAS PLAN: 1. IV diuresis with monitoring renal function and electrolytes - IV Lasix 2. Continue Carvedilol 6.25 mg BID and Diovan 80 mg QD with uptitration as hemodynamics tolerate. Continue ASA 3. Will need sleep study at some point - can be done as outpatient 4. Antibiotic coverage 5. Continue present management as per Critical Care team 6. Tamiflu and Mucomyst 7. DVT prophylaxis Further plans are to follow Ralph Ford MD
[2016-11-05] MEDS: LEVOFLOXACIN 750 MG IVPB 150 ML IVPB SCH (09:56)
[2016-11-05] MEDS: ASPIRIN 325 MG TABLET PO SCH (09:57)
[2016-11-05] MEDS: FUROSEMIDE 40 MG/4 ML INJECTABLE VIAL IVPB SCH (09:57)
[2016-11-05] MEDS: VALSARTAN 80 MG TABLET (UD) PO SCH (09:57)
[2016-11-05] MEDS: CARVEDILOL 6.25 MG TABLET (FP) PO SCH ×2 (09:58→21:53)
[2016-11-05] MEDS: OSELTAMIVIR PHOSPHATE 75 MG CAPSULE PO SCH ×2 (09:58→21:52)
[2016-11-05] MEDS: ACETYLCYSTEINE 20% 200MG/ML 4 ML VIAL *FOR ORAL / INH USE ONLY NEB SCH ×2 (10:05→22:40)
[2016-11-05] MEDS: ARFORMOTEROL TARTRATE 15 MCG/2 ML VIAL NEB SCH ×2 (10:05→22:40)
--- NOTE | 2016-11-05 13:31 | PN ---
Teaching Attending Note Name of Resident: Bhargav Vásquez ATTENDING PHYSICIAN STATEMENT I saw and evaluated the patient. I reviewed the resident's note and discussed the case with the resident. I agree with the resident's findings and plan as documented. SUBJECTIVE: Patient seen and examined in the ICU. Appears overall better. On NC O2. Some residual cough. Intake & Output 11/02/16 11/03/16 11/04/16 11/05/16 23:59 23:59 23:59 23:59 Intake Total 900 5050 2630 Output Total 900 2550 1950 2000 Balance 0 2500 680 -2000 Weight 417 lb 14.4 oz 427 lb 5 oz 421 lb 15.436 oz 412 lb 14.813 oz Last Vital Signs Temp Pulse Resp BP Pulse Ox 98.4 F 74 20 129/70 96 11/05/16 12:00 11/05/16 12:00 11/05/16 12:00 11/05/16 12:00 11/04/16 22:00 Active Medications Acetaminophen (Tylenol -) 650 mg PO Q6H PRN PRN Reason: FEVER OR PAIN Acetylcysteine (Mucomyst 20 Oral / Inh Use Only*) 200 mg NEB BID [facility] Last Admin: 11/05/16 10:05 Dose: 200 mg Albuterol Sulfate (Ventolin 0.083% Nebulizer Soln -) 1 amp NEB Q4H PRN PRN Reason: SHORT OF BREATH/WHEEZING Arformoterol Tartrate (Brovana (Restricted To Pulmonology/Resp) -) 1 amp NEB BID [facility] Last Admin: 11/05/16 10:05 Dose: 1 amp Aspirin (Asa -) 325 mg PO DAILY [facility] Last Admin: 11/05/16 09:57 Dose: 325 mg Carvedilol (Coreg -) 6.25 mg PO BID [facility] Last Admin: 11/05/16 09:58 Dose: 6.25 mg Diphenhydramine HCl (Benadryl -) 25 mg PO HS PRN PRN Reason: INSOMNIA Furosemide (Lasix Injection -) 40 mg IVPB DAILY [facility] Last Admin: 11/05/16 09:57 Dose: 40 mg Guaifenesin (Robitussin Dm -) 10 ml PO Q4H PRN PRN Reason: COUGH Last Admin: 11/04/16 21:31 Dose: 10 ml Heparin Sodium (Porcine) (Heparin -) 5,000 unit SQ TID [facility] Last Admin: 11/05/16 13:13 Dose: 5,000 unit Levofloxacin (Levaquin 750 Mg Premixed Ivpb -) 150 mls @ 150 mls/hr IVPB DAILY [facility] Last Admin: 11/05/16 09:56 Dose: 150 mls/hr Oseltamivir Phosphate (Tamiflu -) 75 mg PO BID [facility] Stop: 11/07/16 15:44 Last Admin: 11/05/16 09:58 Dose: 75 mg Polyethylene Glycol (Miralax (For Daily Use) -) 17 gm PO DAILY PRN PRN Reason: CONSTIPATION Valsartan (Diovan -) 80 mg PO DAILY [facility] Last Admin: 11/05/16 09:57 Dose: 80 mg Constitutional: Yes: Awake and alert Eyes: Yes: Conjunctiva Clear HENT: Yes: Normocephalic Neck: Yes: Other (obese) Cardiovascular: Yes: S1S2 Respiratory: Yes: Cough, Diminished at the bases, few scattered rhonchi Gastrointestinal: Yes: Abdomen, Obese Extremities: Yes: Other Edema: LLE: Trace, RLE: Trace Peripheral Pulses WNL: Yes Integumentary: Yes: WNL Neurological: Yes: WNL ...Motor Strength: WNL Psychiatric: Yes: WNL Labs: Laboratory Results - last 24 hr 11/05/16 11/05/16 11/05/16 05:00 05:00 05:00 WBC 12.2 H RBC 5.17 Hgb 13.8 Hct 41.9 MCV 81.0 MCHC 32.9 RDW 14.9 Plt Count 157 MPV 9.5 Neutrophils % 74.1 Lymphocytes % 13.3 Monocytes % 8.0 Eosinophils % 4.2 Basophils % 0.4 Sodium 141 Potassium 4.2 Chloride 101 Carbon Dioxide 31 Anion Gap 9 BUN 30 H Creatinine 1.1 Creat Clearance w eGFR > 60 Random Glucose 108 H Calcium 8.2 L Phosphorus 3.9 Magnesium 2.2 Total Bilirubin 0.6 D AST 21 D ALT 55 D Alkaline Phosphatase 105 B-Natriuretic Peptide 1835.06 H Total Protein 6.1 L Albumin 2.8 L Assessment/Plan Acute hypoxic respiratory Failure due to suspected CAP +/- CHF Morbid Obesity Hypertensive crisis Likely OSAS -O2 to keep sat > 92% -ABX per ID -Tamiflu x 5 days total -Continue diuresis -Will need formal sleep apnea workup as an outpatient -Floor - D/C planning Dr Ramos CCTime 35"
--- NOTE | 2016-11-05 14:10 | PN ---
Physical Exam: SUBJECTIVE: Patient seen and examined at bedside in the ICU. He reported feeling better everyday. Denies chest pain, fever, chills, n/v, bowel or urinary sx. OBJECTIVE: Vital Signs Period Temp Pulse Resp BP Sys/Da Silva Pulse Ox Last 24 Hr 97.3 F-98.4 F 74-86 20-24 123-150/70-88 95-96 GENERAL: The patient is awake, alert, and fully oriented, on NC 5L EYES: PERRL, extraocular movements intact, sclera anicteric, conjunctiva clear. . LUNGS: Breath sounds equal, small crackles in LLL HEART: Regular rate and rhythm, S1, S2 without murmur, rub or gallop. ABDOMEN: Soft,obese, non-tender, nondistended, normoactive bowel sounds, no guarding, no rebound, no hepatosplenomegaly, no masses. EXTREMITIES: trace edema. Laboratory Results - last 24 hr 11/05/16 11/05/16 11/05/16 05:00 05:00 05:00 WBC 12.2 H RBC 5.17 Hgb 13.8 Hct 41.9 MCV 81.0 MCHC 32.9 RDW 14.9 Plt Count 157 MPV 9.5 Neutrophils % 74.1 Lymphocytes % 13.3 Monocytes % 8.0 Eosinophils % 4.2 Basophils % 0.4 Sodium 141 Potassium 4.2 Chloride 101 Carbon Dioxide 31 Anion Gap 9 BUN 30 H Creatinine 1.1 Creat Clearance w eGFR > 60 Random Glucose 108 H Calcium 8.2 L Phosphorus 3.9 Magnesium 2.2 Total Bilirubin 0.6 D AST 21 D ALT 55 D Alkaline Phosphatase 105 B-Natriuretic Peptide 1835.06 H Total Protein 6.1 L Albumin 2.8 L Active Medications Generic Name Dose Route Start Last Admin Trade Name Freq PRN Reason Stop Dose Admin Acetaminophen 650 mg 11/04/16 12:27 Tylenol - PO Q6H PRN FEVER OR PAIN Acetylcysteine 200 mg 11/04/16 22:00 11/05/16 10:05 Mucomyst 20 Oral / Inh Use Only* NEB 200 mg BID REAGAN Administration Albuterol Sulfate 1 amp 11/04/16 12:27 Ventolin 0.083% Nebulizer Soln - NEB Q4H PRN SHORT OF BREATH/WHEEZING Arformoterol Tartrate 1 amp 11/04/16 22:00 11/05/16 10:05 Brovana (Restricted To Pulmonology/Resp) - NEB 1 amp BID REAGAN Administration Aspirin 325 mg 11/05/16 10:00 11/05/16 09:57 Asa - PO 325 mg DAILY REAGAN Administration Carvedilol 6.25 mg 11/04/16 22:00 11/05/16 09:58 Coreg - PO 6.25 mg BID REAGAN Administration Diphenhydramine HCl 25 mg 11/04/16 12:27 Benadryl - PO HS PRN INSOMNIA Furosemide 40 mg 11/05/16 10:00 11/05/16 09:57 Lasix Injection - IVPB 40 mg DAILY REAGAN Administration Guaifenesin 10 ml 11/04/16 12:27 11/04/16 21:31 Robitussin Dm - PO 10 ml Q4H PRN Administration COUGH Heparin Sodium (Porcine) 5,000 unit 11/04/16 14:00 11/05/16 13:13 Heparin - SQ 5,000 unit TID REAGAN Administration Levofloxacin 150 mls @ 150 mls/hr 11/05/16 10:00 11/05/16 09:56 Levaquin 750 Mg Premixed Ivpb - IVPB 150 mls/hr DAILY REAGAN Administration Oseltamivir Phosphate 75 mg 11/04/16 22:00 11/05/16 09:58 Tamiflu - PO 11/07/16 15:44 75 mg BID REAGAN Administration Polyethylene Glycol 17 gm 11/04/16 12:27 Miralax (For Daily Use) - PO DAILY PRN CONSTIPATION Valsartan 80 mg 11/05/16 10:00 11/05/16 09:57 Diovan - PO 80 mg DAILY REAGAN Administration Imaging CXR 11/05: Left parahilar infiltrate CXR 11/04: Since a prior study of 11/02/2016, the heart size remains slightly enlarged with residual left perihilar infiltrate. No new infiltrates or pleural effusions have developed. IMPRESSION: No significant change ECHO (10/31): normal LVF, mild LVH, EF 60%, trace tri. regurg ASSESSMENT/PLAN: 51 yo M w/ h/o morbid obesity admitted to the ICU for acute hypoxic respiratory failure. Pulm: Acute hypoxic respiratory failure 2/2 CAP vs. CHF exacerbation - BiPAP PRN - pre and post O2 to determine home O2 need - maintain O2 sat >92% - Incentive spirometer - cont. diuresis with lasix 40mg IVPB ID: community acquired pneumonia - afrebile and WBC trending down - cont. tamiflu 75mg BID and levaquin 750 mg daily Cardiac: HTN in the setting of underlying SONIA - admitted initially for hypertensive crisis - cont. coreg 6.25 PO BID, valsartan 80mg PO daily, lasix 40mg IVPB daily FEN - fluid not indicated - elevated BUN, will monitor - sodium restrict diet Prophylaxis - DVT: SCDs and heparin SQ - GI: not indicated Disposition - transfer to med-surg if bed is available by today, otherwise discharge Code status - Full code Visit type - Emergency Visit Emergency Visit: No - New Patient This patient is new to me today: No - Critical Care Critical Care patient: Yes Total Critical Care Time (in minutes): 35 Critical Care Statement: The care of this patient involved high complexity decision making to prevent further life threatening deterioration of the patient 's condition and/or to evalute & treat vital organ system(s) failure or risk of failure. - Discharge Referral Referred to [facility] No
--- NOTE | 2016-11-05 19:01 | PN ---
Progress Note, Physician Chief Complaint: feeling better; w improved cough. History of Present Illness: SEE above - Anticipate Transfer to [facility] when bed available. - Current Medication List Current Medications: Active Medications Acetaminophen (Tylenol -) 650 mg PO Q6H PRN PRN Reason: FEVER OR PAIN Acetylcysteine (Mucomyst 20 Oral / Inh Use Only*) 200 mg NEB BID [facility] Last Admin: 11/05/16 10:05 Dose: 200 mg Albuterol Sulfate (Ventolin 0.083% Nebulizer Soln -) 1 amp NEB Q4H PRN PRN Reason: SHORT OF BREATH/WHEEZING Arformoterol Tartrate (Brovana (Restricted To Pulmonology/Resp) -) 1 amp NEB BID [facility] Last Admin: 11/05/16 10:05 Dose: 1 amp Aspirin (Asa -) 325 mg PO DAILY [facility] Last Admin: 11/05/16 09:57 Dose: 325 mg Carvedilol (Coreg -) 6.25 mg PO BID [facility] Last Admin: 11/05/16 09:58 Dose: 6.25 mg Diphenhydramine HCl (Benadryl -) 25 mg PO HS PRN PRN Reason: INSOMNIA Furosemide (Lasix Injection -) 40 mg IVPB DAILY [facility] Last Admin: 11/05/16 09:57 Dose: 40 mg Guaifenesin (Robitussin Dm -) 10 ml PO Q4H PRN PRN Reason: COUGH Last Admin: 11/04/16 21:31 Dose: 10 ml Heparin Sodium (Porcine) (Heparin -) 5,000 unit SQ TID [facility] Last Admin: 11/05/16 13:13 Dose: 5,000 unit Levofloxacin (Levaquin 750 Mg Premixed Ivpb -) 150 mls @ 150 mls/hr IVPB DAILY [facility] Last Admin: 11/05/16 09:56 Dose: 150 mls/hr Oseltamivir Phosphate (Tamiflu -) 75 mg PO BID [facility] Stop: 11/07/16 15:44 Last Admin: 11/05/16 09:58 Dose: 75 mg Polyethylene Glycol (Miralax (For Daily Use) -) 17 gm PO DAILY PRN PRN Reason: CONSTIPATION Valsartan (Diovan -) 80 mg PO DAILY [facility] Last Admin: 11/05/16 09:57 Dose: 80 mg - Objective Vital Signs: Vital Signs Temperature 98.4 F 11/05/16 12:00 Pulse Rate 93 H 11/05/16 14:00 Respiratory Rate 20 11/05/16 12:00 Blood Pressure 129/70 11/05/16 12:00 O2 Sat by Pulse Oximetry (%) 96 11/05/16 14:00 Constitutional: Yes: No Distress, Calm, Obese Neck: Yes: Supple, Trachea Midline Cardiovascular: Yes: Regular Rate and Rhythm, Tachycardia (NONE), Bruit (NONE), JVD (NONE), Gallop (NONE), Murmur (NONE), S3 (NONE), S4 (NONE) Respiratory: Yes: Regular, Accessory Muscle Use (NONE), On Nasal O2, Rales (none ), Rhonchi (minimal LLL), SOB on Exertion, Tachypnea (none), Wheezes (none), Other (SAO2 @ RA -> REST -> 91% @ RA -> Flat Surface Walk -> 84% @ 2L NC -> Flat Surface Walk -> 96%) Gastrointestinal: Yes: Normal Bowel Sounds, Abdomen, Obese, Tenderness (NONE), Other (BM daily) ...Rectal Exam: Yes: Deferred Musculoskeletal: Yes: WNL Edema: LLE: Trace, RLE: Trace Peripheral Pulses: Right Radial: 1+, Left Doralis Pedis: 1+, Right Dorsalis Pedis: 1+ Integumentary: Yes: WNL Neurological: Yes: WNL, Alert, Oriented, Other (NON Focal) ...Motor Strength: WNL Psychiatric: Yes: Alert, Oriented Labs: CBC, BMP 11/05/16 05:00 11/05/16 05:00 INR, PTT INR 1.20 (0.82-1.09) 10/31/16 08:55 [id number] -> 1835 11/02 BCS X 2 NEG x 72 Hrs 11/01 - Legionella FINAL NEG 11/01 - Pneumoc FINAL NEG 11/01 - Influenza A/B FINAL NEG 11/05 WBC 12 stable ;K+ 4.2 ; BUN 30;Creat 1.1 Problem List - Problems (1) Acute on chronic diastolic (congestive) heart failure Assessment/Plan: WITH MILD Decr LV Syst Fxn: Clinically improved on IV diuretics and antihypertensives - IV Lasix 40mg/d , Carvedilol 6.25 mg BID and Diovan 80mg/ d - Appreciate Cardio input. BNP Trending down; will follow. Code(s): I50.33 - ACUTE ON CHRONIC DIASTOLIC (CONGESTIVE) HEART FAILURE (2) Dyspnea on exertion Assessment/Plan: sudden onset performing his usual level of activity; probably decompensated from possible subclinical diastolic failure. It is now complicated by B/L PNA. SEE notes. Improving w present Txmt - IV Lasiv, AARB, BB, AntBx, Antiviarl, Mucomyst, B adrenergic neb and O2. Cardio, Pulm and ID on Board. SEE Resp Exam SAO2 levels on diff settings. Pt Might need O2 post DC from hosp AT Home. Will order IN Hosp Resp Eval once pt is cleared to DC HOme. ALSO Will REF for Pulm Rehab in outpt dept. Code(s): R06.09 - OTHER FORMS OF DYSPNEA (3) Elevated blood pressure Assessment/Plan: stable on meds. Cardio onboard Code(s): I10 - ESSENTIAL (PRIMARY) HYPERTENSION (4) Morbid obesity Assessment/Plan: BMI 57- Most likely a major contributing factor to HTN and The Urgent event. NEEDS to addresed in the outpt setting. Pt Is a Good candidate for Bariatric Surgery IF Cardiac Clearance is granted. Code(s): E66.01 - MORBID (SEVERE) OBESITY DUE TO EXCESS CALORIES Qualifiers: Qualified Code(s): E66.01 - Morbid (severe) obesity due to excess calories (5) Bilateral pneumonia Assessment/Plan: Perihialr/ Left infiltrates in CXK 11-04-16; s/p Mucomyst BID -improved breathing - Levaquin /Tamiflu- DC Vanco per ID.. Pulm on Board as well. Will dc home on Levaquin and complete 5 days of Tamiflu Code(s): J18.9 - PNEUMONIA, UNSPECIFIED ORGANISM
[2016-11-06] MEDS: guaiFENesin/D-METHORPHAN HB 10 ML UNIT-DOSE CUPS PO PRN ×3 (02:50→17:02)
[2016-11-06] MEDS: HEPARIN NA (PORCINE) 5,000 UNITS/ML 1ML VIAL SQ SCH ×3 (05:51→21:35)
[2016-11-06 06:45] LABS: BASOPHIL 0.5 % (0-2.0); EOSINOPHIL 3.3 % (0-4.5); MCH 27.2 pg (25.7-33.7); MCHC 33.6 g/dl (32.0-35.9); MEAN CELL VOLUME 80.9 fl (80-96); MEAN PLT VOLUME 9.7 fl (7.5-11.1); NEUTROPHILS 70.8 % (42.8-82.8); PLATELET COUNT 162 K/MM3 (134-434); RDW 15.1 % (11.9-15.9); WHITE BLOOD COUNT 10.6 K/mm3 (4.0-10.0)
[2016-11-06 07:09] LABS: ALBUMIN 2.8 g/dl (3.4-5.0); ANION GAP 11 (8-16); BILIRUBIN,TOTAL 0.6 mg/dL (0.2-1.0); CALCIUM 8.3 mg/dL (8.5-10.1); CO2 29 mmol/L (21-32); GLUCOSE,RANDOM 107 mg/dL (74-106); SGOT/AST 22 U/L (15-37); SGPT/ALT 56 U/L (12-78)
[2016-11-06 07:10] LABS: ALK PHOS 100 U/L (45-117); TOT PROT 5.9 g/dl (6.4-8.2)
[2016-11-06] MEDS ORDERED: methylPREDNISolone NA SUCC 40 MG/1 ML VIAL IVPB ONE (08:01)
--- NOTE | 2016-11-06 08:01 | PN ---
Progress Note, Physician Chief Complaint: ID Coulyudmila still severe Levofloxacin and Tamiflu - Current Medication List Current Medications: Active Medications Acetaminophen (Tylenol -) 650 mg PO Q6H PRN PRN Reason: FEVER OR PAIN Acetylcysteine (Mucomyst 20 Oral / Inh Use Only*) 200 mg NEB BID [facility] Last Admin: 11/05/16 22:40 Dose: 200 mg Albuterol Sulfate (Ventolin 0.083% Nebulizer Soln -) 1 amp NEB Q4H PRN PRN Reason: SHORT OF BREATH/WHEEZING Arformoterol Tartrate (Brovana (Restricted To Pulmonology/Resp) -) 1 amp NEB BID [facility] Last Admin: 11/05/16 22:40 Dose: 1 amp Aspirin (Asa -) 325 mg PO DAILY [facility] Last Admin: 11/05/16 09:57 Dose: 325 mg Carvedilol (Coreg -) 6.25 mg PO BID [facility] Last Admin: 11/05/16 21:53 Dose: 6.25 mg Diphenhydramine HCl (Benadryl -) 25 mg PO HS PRN PRN Reason: INSOMNIA Furosemide (Lasix Injection -) 40 mg IVPB DAILY [facility] Last Admin: 11/05/16 09:57 Dose: 40 mg Guaifenesin (Robitussin Dm -) 10 ml PO Q4H PRN PRN Reason: COUGH Last Admin: 11/06/16 02:50 Dose: 10 ml Heparin Sodium (Porcine) (Heparin -) 5,000 unit SQ TID [facility] Last Admin: 11/06/16 05:51 Dose: 5,000 unit Levofloxacin (Levaquin 750 Mg Premixed Ivpb -) 150 mls @ 150 mls/hr IVPB DAILY [facility] Last Admin: 11/05/16 09:56 Dose: 150 mls/hr Oseltamivir Phosphate (Tamiflu -) 75 mg PO BID [facility] Stop: 11/07/16 15:44 Last Admin: 11/05/16 21:52 Dose: 75 mg Polyethylene Glycol (Miralax (For Daily Use) -) 17 gm PO DAILY PRN PRN Reason: CONSTIPATION Valsartan (Diovan -) 80 mg PO DAILY [facility] Last Admin: 11/05/16 09:57 Dose: 80 mg - Objective Vital Signs: Vital Signs Temperature 98.4 F 11/06/16 06:00 Pulse Rate 74 11/06/16 06:00 Respiratory Rate 20 11/06/16 06:00 Blood Pressure 131/83 11/06/16 06:00 O2 Sat by Pulse Oximetry (%) 96 11/05/16 19:21 Constitutional: Yes: Obese Neck: Yes: WNL, Supple Cardiovascular: Yes: S1, S2 Respiratory: Yes: Rhonchi Gastrointestinal: Yes: Soft. No: Tenderness Labs: CBC, BMP 11/06/16 05:20 11/06/16 05:20 INR, PTT INR 1.20 (0.82-1.09) 10/31/16 08:55 Assessment/Plan Microbiology 11/01/16 20:00 Urine For Antigen Detection Legionella Antigen - Final 11/01/16 20:00 Urine For Antigen Detection Streptococcus pneumoniae Antigen (M - Final 11/01/16 20:00 Nasopharyngeal Swab Influenza Types A,B Antigen (TG) - Final 11/01/16 20:00 Nasopharyngeal Swab - Final 11/02/16 16:20 Blood - Peripheral Venous Blood Culture - Preliminary NO GROWTH OBTAINED AFTER 72 HOURS, INCUBATION TO CONTINUE FOR 2 DAYS. 11/02/16 16:20 Blood - Peripheral Venous Blood Culture - Preliminary NO GROWTH OBTAINED AFTER 72 HOURS, INCUBATION TO CONTINUE FOR 2 DAYS. Laboratory Tests 11/06/16 05:20 WBC 10.6 H Hgb 13.7 Hct 40.7 Plt Count 162 Assessment Pneumonia from community Respiratory failure Obesity Plan Complete antiviral course Levoflox Consider adding some steroids Will give [address] Woodall evaluation Lorri SCHMIDT
[2016-11-06] MEDS: OSELTAMIVIR PHOSPHATE 75 MG CAPSULE PO SCH ×2 (09:07→21:35)
[2016-11-06] MEDS: VALSARTAN 80 MG TABLET (UD) PO SCH (09:08)
[2016-11-06] MEDS: FUROSEMIDE 40 MG/4 ML INJECTABLE VIAL IVPB SCH (09:08)
[2016-11-06] MEDS: CARVEDILOL 6.25 MG TABLET (FP) PO SCH ×2 (09:08→21:35)
[2016-11-06] MEDS: ACETYLCYSTEINE 20% 200MG/ML 4 ML VIAL *FOR ORAL / INH USE ONLY NEB SCH ×2 (09:30→22:45)
[2016-11-06] MEDS: ARFORMOTEROL TARTRATE 15 MCG/2 ML VIAL NEB SCH ×2 (09:30→22:45)
[2016-11-06] MEDS: LEVOFLOXACIN 750 MG IVPB 150 ML IVPB SCH (12:00)
--- NOTE | 2016-11-06 12:49 | PN ---
Progress Note, Physician History of Present Illness: Dyspnea slowly improving. - Current Medication List Current Medications: Active Medications Acetaminophen (Tylenol -) 650 mg PO Q6H PRN PRN Reason: FEVER OR PAIN Acetylcysteine (Mucomyst 20 Oral / Inh Use Only*) 200 mg NEB BID [facility] Last Admin: 11/06/16 09:30 Dose: 200 mg Albuterol Sulfate (Ventolin 0.083% Nebulizer Soln -) 1 amp NEB Q4H PRN PRN Reason: SHORT OF BREATH/WHEEZING Arformoterol Tartrate (Brovana (Restricted To Pulmonology/Resp) -) 1 amp NEB BID [facility] Last Admin: 11/06/16 09:30 Dose: 1 amp Aspirin (Asa -) 325 mg PO DAILY [facility] Last Admin: 11/05/16 09:57 Dose: 325 mg Carvedilol (Coreg -) 6.25 mg PO BID [facility] Last Admin: 11/06/16 09:08 Dose: 6.25 mg Diphenhydramine HCl (Benadryl -) 25 mg PO HS PRN PRN Reason: INSOMNIA Furosemide (Lasix Injection -) 40 mg IVPB DAILY [facility] Last Admin: 11/06/16 09:08 Dose: 40 mg Guaifenesin (Robitussin Dm -) 10 ml PO Q4H PRN PRN Reason: COUGH Last Admin: 11/06/16 09:05 Dose: 10 ml Heparin Sodium (Porcine) (Heparin -) 5,000 unit SQ TID [facility] Last Admin: 11/06/16 05:51 Dose: 5,000 unit Levofloxacin (Levaquin 750 Mg Premixed Ivpb -) 150 mls @ 150 mls/hr IVPB DAILY [facility] Last Admin: 11/05/16 09:56 Dose: 150 mls/hr Oseltamivir Phosphate (Tamiflu -) 75 mg PO BID [facility] Stop: 11/07/16 15:44 Last Admin: 11/06/16 09:07 Dose: 75 mg Polyethylene Glycol (Miralax (For Daily Use) -) 17 gm PO DAILY PRN PRN Reason: CONSTIPATION Valsartan (Diovan -) 80 mg PO DAILY [facility] Last Admin: 11/06/16 09:08 Dose: 80 mg - Objective Vital Signs: Vital Signs Temperature 97.3 F L 11/06/16 10:00 Pulse Rate 82 11/06/16 12:00 Respiratory Rate 20 11/06/16 12:00 Blood Pressure 115/81 11/06/16 12:00 O2 Sat by Pulse Oximetry (%) 96 11/05/16 19:21 Constitutional: Yes: No Distress, Calm Neck: Yes: Supple Cardiovascular: Yes: Regular Rate and Rhythm Respiratory: Yes: Regular, Diminished Gastrointestinal: Yes: Normal Bowel Sounds, Soft, Abdomen, Obese Edema: Yes Edema: LLE: Trace, RLE: Trace Labs: CBC, BMP 11/06/16 05:20 11/06/16 05:20 INR, PTT INR 1.20 (0.82-1.09) 10/31/16 08:55 - ....Imaging Chest X-ray: Report Reviewed (Left perihilar infiltrate) Problem List - Problems (1) Acute on chronic diastolic (congestive) heart failure Code(s): I50.33 - ACUTE ON CHRONIC DIASTOLIC (CONGESTIVE) HEART FAILURE (2) Hypertensive urgency Code(s): I10 - ESSENTIAL (PRIMARY) HYPERTENSION (3) Dyspnea on exertion Code(s): R06.09 - OTHER FORMS OF DYSPNEA (4) Morbid obesity Code(s): E66.01 - MORBID (SEVERE) OBESITY DUE TO EXCESS CALORIES Qualifiers: Obesity type: unspecified obesity type Qualified Code(s): E66.01 - Morbid (severe) obesity due to excess calories (5) Obstructive sleep apnea Code(s): G47.33 - OBSTRUCTIVE SLEEP APNEA (ADULT) (PEDIATRIC) (6) Pneumonia Code(s): J18.9 - PNEUMONIA, UNSPECIFIED ORGANISM Qualifiers: Pneumonia type: due to unspecified organism Laterality: bilateral Lung location: lower lobe of lung Qualified Code(s): J18.9 - Pneumonia, unspecified organism Assessment/Plan 1. Acute on chronic diastolic failure with mildly decreased LV systolic function improving 2. Respiratory failure referable to pneumonia improving 3. Hypertension 4. Morbid obesity 5. OSAS PLAN: 1. Lasix 40 IV qd with monitoring renal function and electrolytes 2. Continue Carvedilol 6.25 mg BID and Diovan 80 mg QD with uptitration as hemodynamics tolerate. Continue ASA 325 qd 3. Will need sleep study at some point - can be done as outpatient 4. Complete antibiotic and antiviral coverage 5. Continue present management as per Critical Care team 6. Tamiflu, BD and Mucomyst 7. DVT prophylaxis
--- NOTE | 2016-11-06 12:50 | PN ---
Teaching Attending Note Name of Resident: Bhargav Vásquez ATTENDING PHYSICIAN STATEMENT I saw and evaluated the patient. I reviewed the resident's note and discussed the case with the resident. I agree with the resident's findings and plan as documented. SUBJECTIVE: Pt seen and examined in the ICU. Still with nonproductive cough but denies wheezing. Breathing slowly improving. Saturating low 90s on 2L nasal cannula. OBJECTIVE: Last Vital Signs Temp Pulse Resp BP Pulse Ox 97.3 F L 82 20 115/81 96 11/06/16 10:00 11/06/16 12:00 11/06/16 12:00 11/06/16 12:00 11/05/16 19:21 Intake & Output 11/03/16 11/04/16 11/05/16 11/06/16 23:59 23:59 23:59 23:59 Intake Total 5050 2630 950 300 Output Total 2550 1950 3000 600 Balance 2500 680 -2050 -300 Weight 427 lb 5 oz 421 lb 15.436 oz 412 lb 14.813 oz 412 lb 7.758 oz Gen: NAD at rest Heart: RRR Lung: distant breath sounds Abd: soft, obese, nontender Ext: + edema CBC, BMP 11/06/16 05:20 11/06/16 05:20 Active Medications Acetaminophen (Tylenol -) 650 mg PO Q6H PRN PRN Reason: FEVER OR PAIN Acetylcysteine (Mucomyst 20 Oral / Inh Use Only*) 200 mg NEB BID [facility] Last Admin: 11/06/16 09:30 Dose: 200 mg Albuterol Sulfate (Ventolin 0.083% Nebulizer Soln -) 1 amp NEB Q4H PRN PRN Reason: SHORT OF BREATH/WHEEZING Arformoterol Tartrate (Brovana (Restricted To Pulmonology/Resp) -) 1 amp NEB BID [facility] Last Admin: 11/06/16 09:30 Dose: 1 amp Aspirin (Asa -) 325 mg PO DAILY [facility] Last Admin: 11/05/16 09:57 Dose: 325 mg Carvedilol (Coreg -) 6.25 mg PO BID [facility] Last Admin: 11/06/16 09:08 Dose: 6.25 mg Diphenhydramine HCl (Benadryl -) 25 mg PO HS PRN PRN Reason: INSOMNIA Furosemide (Lasix Injection -) 40 mg IVPB DAILY [facility] Last Admin: 11/06/16 09:08 Dose: 40 mg Guaifenesin (Robitussin Dm -) 10 ml PO Q4H PRN PRN Reason: COUGH Last Admin: 11/06/16 09:05 Dose: 10 ml Heparin Sodium (Porcine) (Heparin -) 5,000 unit SQ TID [facility] Last Admin: 11/06/16 05:51 Dose: 5,000 unit Levofloxacin (Levaquin 750 Mg Premixed Ivpb -) 150 mls @ 150 mls/hr IVPB DAILY [facility] Last Admin: 11/05/16 09:56 Dose: 150 mls/hr Oseltamivir Phosphate (Tamiflu -) 75 mg PO BID [facility] Stop: 11/07/16 15:44 Last Admin: 11/06/16 09:07 Dose: 75 mg Polyethylene Glycol (Miralax (For Daily Use) -) 17 gm PO DAILY PRN PRN Reason: CONSTIPATION Valsartan (Diovan -) 80 mg PO DAILY [facility] Last Admin: 11/06/16 09:08 Dose: 80 mg ASSESSMENT AND PLAN: Acute Hypoxic Respiratory Failure Acute on Chronic Diastolic Heart Failure Pneumonia HTN Morbid Obesity SONIA - continue antibiotics, complete tamiflu - continue lasix - monitor urine output, creatinine - keep net negative - O2 to keep SpO2 >90% - will need PSG as outpt - encourage weight loss - inhaled bronchodilators - DVT prophylaxis - can monitor on floor
--- NOTE | 2016-11-06 14:23 | PN ---
Physical Exam: SUBJECTIVE: Patient seen and examined at bedside in the ICU. He has no complaint. Non- productive cough still persists. Denies chest pain, fever, chills, n/v, bowel or urinary sx. OBJECTIVE: Vital Signs Period Temp Pulse Resp BP Sys/Da Silva Pulse Ox Last 24 Hr 97.3 F-98.4 F 71-83 17-74 93-131/48-92 96-96 GENERAL: The patient is awake, alert, and fully oriented, on NC 5L EYES: PERRL, extraocular movements intact, sclera anicteric, conjunctiva clear. . LUNGS: CTAB HEART: Regular rate and rhythm, S1, S2 without murmur, rub or gallop. ABDOMEN: Soft,obese, non-tender, nondistended, normoactive bowel sounds, no guarding, no rebound, no hepatosplenomegaly, no masses. EXTREMITIES: trace edema. Laboratory Results - last 24 hr 11/06/16 11/06/16 05:20 05:20 WBC 10.6 H RBC 5.04 Hgb 13.7 Hct 40.7 MCV 80.9 MCHC 33.6 RDW 15.1 Plt Count 162 MPV 9.7 Neutrophils % 70.8 Lymphocytes % 16.0 D Monocytes % 9.4 Eosinophils % 3.3 Basophils % 0.5 Sodium 141 Potassium 3.9 Chloride 101 Carbon Dioxide 29 Anion Gap 11 BUN 29 H Creatinine 1.0 Creat Clearance w eGFR > 60 Random Glucose 107 H Calcium 8.3 L Total Bilirubin 0.6 AST 22 ALT 56 Alkaline Phosphatase 100 Total Protein 5.9 L Albumin 2.8 L Active Medications Generic Name Dose Route Start Last Admin Trade Name Leodanq PRN Reason Stop Dose Admin Acetaminophen 650 mg 11/04/16 12:27 Tylenol - PO Q6H PRN FEVER OR PAIN Acetylcysteine 200 mg 11/04/16 22:00 11/06/16 09:30 Mucomyst 20 Oral / Inh Use Only* NEB 200 mg BID REAGAN Administration Albuterol Sulfate 1 amp 11/04/16 12:27 Ventolin 0.083% Nebulizer Soln - NEB Q4H PRN SHORT OF BREATH/WHEEZING Arformoterol Tartrate 1 amp 11/04/16 22:00 11/06/16 09:30 Brovana (Restricted To Pulmonology/Resp) - NEB 1 amp BID REAGAN Administration Aspirin 325 mg 11/05/16 10:00 11/05/16 09:57 Asa - PO 325 mg DAILY REAGAN Administration Carvedilol 6.25 mg 11/04/16 22:00 11/06/16 09:08 Coreg - PO 6.25 mg BID REAGAN Administration Diphenhydramine HCl 25 mg 11/04/16 12:27 Benadryl - PO HS PRN INSOMNIA Furosemide 40 mg 11/05/16 10:00 11/06/16 09:08 Lasix Injection - IVPB 40 mg DAILY REAGAN Administration Guaifenesin 10 ml 11/04/16 12:27 11/06/16 09:05 Robitussin Dm - PO 10 ml Q4H PRN Administration COUGH Heparin Sodium (Porcine) 5,000 unit 11/04/16 14:00 11/06/16 05:51 Heparin - SQ 5,000 unit TID REAGAN Administration Levofloxacin 150 mls @ 150 mls/hr 11/05/16 10:00 11/05/16 09:56 Levaquin 750 Mg Premixed Ivpb - IVPB 150 mls/hr DAILY REAGAN Administration Oseltamivir Phosphate 75 mg 11/04/16 22:00 11/06/16 09:07 Tamiflu - PO 11/07/16 15:44 75 mg BID REAGAN Administration Polyethylene Glycol 17 gm 11/04/16 12:27 Miralax (For Daily Use) - PO DAILY PRN CONSTIPATION Valsartan 80 mg 11/05/16 10:00 11/06/16 09:08 Diovan - PO 80 mg DAILY REAGAN Administration Imaging CXR 11/05: Left parahilar infiltrate CXR 11/04: Since a prior study of 11/02/2016, the heart size remains slightly enlarged with residual left perihilar infiltrate. No new infiltrates or pleural effusions have developed. IMPRESSION: No significant change ECHO (10/31): normal LVF, mild LVH, EF 60%, trace tri. regurg ASSESSMENT/PLAN: 51 yo M w/ h/o morbid obesity admitted to the ICU for acute hypoxic respiratory failure. Pulm: Acute hypoxic respiratory failure 2/2 CAP vs. CHF exacerbation - BiPAP PRN - pre and post O2 to determine home O2 need - maintain O2 sat >92% - Incentive spirometer - cont. diuresis with lasix 40mg IVPB ID: community acquired pneumonia - afrebile and WBC trending down - cont. tamiflu 75mg BID (day 3) and levaquin 750 mg daily (day 2) Cardiac: HTN in the setting of underlying SONIA - admitted initially for hypertensive crisis - cont. coreg 6.25 PO BID, valsartan 80mg PO daily, lasix 40mg IVPB daily FEN - fluid not indicated - lytes normal - sodium restrict diet Prophylaxis - DVT: SCDs and heparin SQ - GI: not indicated Disposition - transfer to [facility]-surg if bed is available by today, otherwise discharge Code status - Full code Visit type - Emergency Visit Emergency Visit: No - New Patient This patient is new to me today: No - Critical Care Critical Care patient: Yes Total Critical Care Time (in minutes): 35 Critical Care Statement: The care of this patient involved high complexity decision making to prevent further life threatening deterioration of the patient 's condition and/or to evalute & treat vital organ system(s) failure or risk of failure.
[2016-11-06] MEDS ORDERED: PT OWN MED DRAWER 7, Y5N ONE ×2 (16:51→21:27)
[2016-11-06] MEDS: ASPIRIN 325 MG TABLET PO SCH (17:03)
[2016-11-06] MEDS ORDERED: POLYETHYLENE GLYCOL 3350 119 GM BTL PO PRN (18:20)
[2016-11-06] MEDS ORDERED: ACETAMINOPHEN 325 MG TABLET (FP) PO PRN (18:20)
[2016-11-06] MEDS ORDERED: ALBUTEROL SO4 0.083% IH SOL 2.5 MG/3 ML VIAL.NEB. NEB PRN (18:20)
[2016-11-06] MEDS ORDERED: diphenhydrAMINE HCL 25 MG CAPSULE (FP) PO PRN (18:20)
--- NOTE | 2016-11-06 20:22 | PN ---
Progress Note, Physician Chief Complaint: walking the hallwy W/O resp aides and WITH mask W/O PORTILLO or SOB +some cough mild mucous; eager to go home History of Present Illness: See prev notes Pt on Po Tamiflu - Last dose 10-28-16 2 15:43; Still on IV Lasix 40/ d - Current Medication List Current Medications: Active Medications Acetaminophen (Tylenol -) 650 mg PO Q6H PRN PRN Reason: FEVER OR PAIN Acetylcysteine (Mucomyst 20 Oral / Inh Use Only*) 200 mg NEB BID REAGAN Albuterol Sulfate (Ventolin 0.083% Nebulizer Soln -) 1 amp NEB Q4H PRN PRN Reason: SHORT OF BREATH/WHEEZING Arformoterol Tartrate (Brovana (Restricted To Pulmonology/Resp) -) 1 amp NEB BID REAGAN Aspirin (Asa -) 325 mg PO DAILY REAGAN Carvedilol (Coreg -) 6.25 mg PO BID REAGAN Diphenhydramine HCl (Benadryl -) 25 mg PO HS PRN PRN Reason: INSOMNIA Furosemide (Lasix Injection -) 40 mg IVPB DAILY [facility] Guaifenesin (Robitussin Dm -) 10 ml PO Q4H PRN PRN Reason: COUGH Heparin Sodium (Porcine) (Heparin -) 5,000 unit SQ TID [facility] Levofloxacin (Levaquin 750 Mg Premixed Ivpb -) 150 mls @ 150 mls/hr IVPB DAILY [facility] Oseltamivir Phosphate (Tamiflu -) 75 mg PO BID [facility] Stop: 11/07/16 15:44 Polyethylene Glycol (Miralax (For Daily Use) -) 17 gm PO DAILY PRN PRN Reason: CONSTIPATION Valsartan (Diovan -) 80 mg PO DAILY [facility] - Objective Vital Signs: Vital Signs Temperature 97.3 F L 11/06/16 10:00 Pulse Rate 84 11/06/16 20:00 Respiratory Rate 22 11/06/16 20:00 Blood Pressure 132/71 11/06/16 20:00 O2 Sat by Pulse Oximetry (%) 95 11/06/16 20:16 Constitutional: Yes: No Distress, Calm, Obese (BMI 55.9) Neck: Yes: Supple, Trachea Midline Cardiovascular: Yes: Regular Rate and Rhythm, Tachycardia (NONE), Bruit (NONE), JVD (NONE), Murmur (NONE), S3 (NO), S4 (NO) Respiratory: Yes: Regular, CTA Bilaterally, Accessory Muscle Use (none), On Nasal O2, Rhonchi (none), SOB (none), SOB on Exertion (minimal), Tachypnea (none ), Wheezes (none) Gastrointestinal: Yes: Normal Bowel Sounds, Abdomen, Obese, Tenderness (none), Other (BM daily) Musculoskeletal: Yes: WNL Extremities: Yes: WNL Edema: No Peripheral Pulses: Left Radial: 1+, Right Radial: 1+, Left Doralis Pedis: 1+, Right Dorsalis Pedis: 1+ Integumentary: Yes: WNL Neurological: Yes: WNL, Alert, Oriented ...Motor Strength: WNL Psychiatric: Yes: Alert, Oriented Labs: CBC, BMP 11/06/16 05:20 11/06/16 05:20 INR, PTT INR 1.20 (0.82-1.09) 10/31/16 08:55 2-18 BCS x2 NEG x 96hr 2-17 Resp Viral Panle PEND Problem List - Problems (1) Acute on chronic diastolic (congestive) heart failure Assessment/Plan: WITH MILD Decr LV Syst Fxn: Clinically improved on IV diuretics and antihypertensives - IV Lasix 40mg/d , Carvedilol 6.25 mg BID and Diovan 80mg/ d - Appreciate Cardio input. BNP Trending down; will change IV Lasix to po same dose and instructions. Code(s): I50.33 - ACUTE ON CHRONIC DIASTOLIC (CONGESTIVE) HEART FAILURE (2) Dyspnea on exertion Assessment/Plan: sudden onset performing his usual level of activity; probably decompensated from possible subclinical diastolic failure. It is now complicated by B/L PNA. SEE notes. Improving w present Txmt - IV Lasiv, AARB, BB, AntBx, Antiviarl, Mucomyst, B adrenergic neb and O2. Cardio, Pulm and ID on Board. Will change IVlasix to po lasix; Pend EARLY AM CXR for FUP pre anticipateddc home. Pt has been amulating today w/o resp assistance in the unit hallway w SAO2 >94% Code(s): R06.09 - OTHER FORMS OF DYSPNEA (3) Elevated blood pressure Assessment/Plan: stable on meds. Cardio onboard Code(s): I10 - ESSENTIAL (PRIMARY) HYPERTENSION (4) Morbid obesity Assessment/Plan: BMI 57- Most likely a major contributing factor to HTN and The Urgent event. NEEDS to be addresed in the outpt setting. Pt Is a Good candidate for Bariatric Surgery IF Cardiac Clearance is granted. Code(s): E66.01 - MORBID (SEVERE) OBESITY DUE TO EXCESS CALORIES Qualifiers: Obesity type: unspecified obesity type Qualified Code(s): E66.01 - Morbid (severe) obesity due to excess calories (5) Bilateral pneumonia Assessment/Plan: Perihialr/ Left infiltrates in CXK 11-04 & ; s/p Mucomyst BID -improved breathing- Levaquin /Tamiflu- DC Vanco per ID.. Pulm on Board as well.Will be dc 'd home ON Levaquin plus coplete 5 days of Tamiflu last Dose on 10-28 2 15: 43. MIGHT Need Po Steroid for DC Home- FUP CXR Pre Anticipated. DC Home tomorrow. . PEND Resp Viral CS 11-01-16. Code(s): J18.9 - PNEUMONIA, UNSPECIFIED ORGANISM (6) Discharge planning issues Assessment/Plan: Anticipate DC Home tomorrow post : AM FUP CXR ( if Improved OR Stable) , Po Levaquin (Total 10 days), Last Dose tamiflu ERx (PM Dose) , PULM Medical Instructions ( Cont Brovana ? ; Po Steroid Post DC Home ? ) , tolerance of po Lasix , DC HOME Clearance From consultants ( Pulm, ID, Cardio ). Anticiopate will NOT require O2 post DC Home. Will REF to Pulm rehag OUT PT as well. Pt to make New Pt fup appt at my office - instructed ~1-2 wks. Code(s): Z02.9 - ENCOUNTER FOR ADMINISTRATIVE EXAMINATIONS, UNSPECIFIED
[2016-11-06] MEDS ORDERED: ALBUTEROL SO4 6.7 GM HFA INHALER IH PRN (21:37)
[2016-11-07] MEDS: HEPARIN NA (PORCINE) 5,000 UNITS/ML 1ML VIAL SQ SCH ×2 (06:07→13:45)
[2016-11-07] MEDS: guaiFENesin/D-METHORPHAN HB 10 ML UNIT-DOSE CUPS PO PRN ×3 (06:17→13:54)
[2016-11-07] MEDS ORDERED: PT OWN MED DRAWER 7, Y5N ONE (09:37)
[2016-11-07] MEDS: CARVEDILOL 6.25 MG TABLET (FP) PO SCH (09:43)
[2016-11-07] MEDS: OSELTAMIVIR PHOSPHATE 75 MG CAPSULE PO SCH (09:44)
[2016-11-07 09:50] VITALS: BP 130/86
[2016-11-07] MEDS ORDERED: FUROSEMIDE 40 MG TABLET (FP) PO SCH (10:00)
[2016-11-07] MEDS ORDERED: LEVOFLOXACIN 750 MG IVPB 150 ML IVPB SCH (10:00)
[2016-11-07] MEDS ORDERED: ASPIRIN 325 MG TABLET PO SCH (10:00)
[2016-11-07] MEDS ORDERED: FUROSEMIDE 40 MG/4 ML INJECTABLE VIAL IVPB SCH (10:00)
[2016-11-07] MEDS ORDERED: VALSARTAN 80 MG TABLET (UD) PO SCH (10:00)
--- NOTE | 2016-11-07 10:03 | PN ---
Progress Note (short form) - Note Progress Note: PULMONARY States breathing is better. Still some chest congestion. No fevers or chills. Last Vital Signs Temp Pulse Resp BP Pulse Ox 98.6 F 80 20 130/86 95 11/07/16 09:50 11/07/16 09:50 11/07/16 09:50 11/07/16 09:50 11/06/16 20:16 Gen: NAD in chair Heart: RRR Lung: decreased breath sounds at the bases Abd: soft, nontender Ext: + edema CBC, BMP 11/06/16 05:20 11/06/16 05:20 Active Medications Acetaminophen (Tylenol -) 650 mg PO Q6H PRN PRN Reason: FEVER OR PAIN Acetylcysteine (Mucomyst 20 Oral / Inh Use Only*) 200 mg NEB BID [facility] Last Admin: 11/06/16 22:45 Dose: 200 mg Albuterol Sulfate (Ventolin 0.083% Nebulizer Soln -) 1 amp NEB Q4H PRN PRN Reason: SHORT OF BREATH/WHEEZING Albuterol Sulfate (Ventolin Hfa Inhaler -) 2 puff IH Q4H PRN PRN Reason: SHORT OF BREATH/WHEEZING Arformoterol Tartrate (Brovana (Restricted To Pulmonology/Resp) -) 1 amp NEB BID [facility] Last Admin: 11/06/16 22:45 Dose: 1 amp Aspirin (Asa -) 325 mg PO DAILY [facility] Last Admin: 11/07/16 09:43 Dose: 325 mg Carvedilol (Coreg -) 6.25 mg PO BID [facility] Last Admin: 11/07/16 09:43 Dose: 6.25 mg Diphenhydramine HCl (Benadryl -) 25 mg PO HS PRN PRN Reason: INSOMNIA Furosemide (Lasix -) 40 mg PO DAILY [facility] Last Admin: 11/07/16 09:43 Dose: 40 mg Guaifenesin (Robitussin Dm -) 10 ml PO Q4H PRN PRN Reason: COUGH Last Admin: 11/07/16 09:44 Dose: 10 ml Heparin Sodium (Porcine) (Heparin -) 5,000 unit SQ TID [facility] Last Admin: 11/07/16 06:07 Dose: 5,000 unit Levofloxacin (Levaquin 750 Mg Premixed Ivpb -) 150 mls @ 150 mls/hr IVPB DAILY [facility] Last Admin: 11/07/16 09:43 Dose: 150 mls/hr Oseltamivir Phosphate (Tamiflu -) 75 mg PO BID [facility] Stop: 11/07/16 15:44 Last Admin: 11/07/16 09:44 Dose: 75 mg Polyethylene Glycol (Miralax (For Daily Use) -) 17 gm PO DAILY PRN PRN Reason: CONSTIPATION Valsartan (Diovan -) 80 mg PO DAILY [facility] Last Admin: 11/07/16 09:43 Dose: 80 mg A/P Acute Hypoxic Respiratory Failure improved Acute on Chronic Diastolic Heart Failure Pneumonia HTN Morbid Obesity SONIA - complete antibiotics, tamiflu - continue lasix - monitor urine output, creatinine - encourage weight loss - inhaled bronchodilators - DVT prophylaxis - can discharge home from pulmonary standpoint, does not need brovana or steroids at home, can discharge on albuterol prn and will need PSG, PFTs as outpt
[2016-11-07] MEDS: ARFORMOTEROL TARTRATE 15 MCG/2 ML VIAL NEB SCH (11:03)
[2016-11-07] MEDS: ACETYLCYSTEINE 20% 200MG/ML 4 ML VIAL *FOR ORAL / INH USE ONLY NEB SCH (11:03)
[2016-11-07 15:35] VITALS: PULSE 78; TEMP 98.1
--- NOTE | 2016-11-07 16:22 | PN ---
Progress Note, Physician History of Present Illness: Dyspnea on exertion resolved. - Current Medication List Current Medications: Active Medications Acetaminophen (Tylenol -) 650 mg PO Q6H PRN PRN Reason: FEVER OR PAIN Acetylcysteine (Mucomyst 20 Oral / Inh Use Only*) 200 mg NEB BID [facility] Last Admin: 11/07/16 11:03 Dose: 200 mg Albuterol Sulfate (Ventolin 0.083% Nebulizer Soln -) 1 amp NEB Q4H PRN PRN Reason: SHORT OF BREATH/WHEEZING Albuterol Sulfate (Ventolin Hfa Inhaler -) 2 puff IH Q4H PRN PRN Reason: SHORT OF BREATH/WHEEZING Arformoterol Tartrate (Brovana (Restricted To Pulmonology/Resp) -) 1 amp NEB BID [facility] Last Admin: 11/07/16 11:03 Dose: 1 amp Aspirin (Asa -) 325 mg PO DAILY [facility] Last Admin: 11/07/16 09:43 Dose: 325 mg Carvedilol (Coreg -) 6.25 mg PO BID [facility] Last Admin: 11/07/16 09:43 Dose: 6.25 mg Diphenhydramine HCl (Benadryl -) 25 mg PO HS PRN PRN Reason: INSOMNIA Furosemide (Lasix -) 40 mg PO DAILY [facility] Last Admin: 11/07/16 09:43 Dose: 40 mg Guaifenesin (Robitussin Dm -) 10 ml PO Q4H PRN PRN Reason: COUGH Last Admin: 11/07/16 13:54 Dose: 10 ml Heparin Sodium (Porcine) (Heparin -) 5,000 unit SQ TID [facility] Last Admin: 11/07/16 13:45 Dose: 5,000 unit Polyethylene Glycol (Miralax (For Daily Use) -) 17 gm PO DAILY PRN PRN Reason: CONSTIPATION Valsartan (Diovan -) 80 mg PO DAILY [facility] Last Admin: 11/07/16 09:43 Dose: 80 mg - Objective Vital Signs: Vital Signs Temperature 98.1 F 11/07/16 15:34 Pulse Rate 78 11/07/16 15:34 Respiratory Rate 20 11/07/16 15:34 Blood Pressure 130/86 11/07/16 09:50 O2 Sat by Pulse Oximetry (%) 95 11/07/16 09:00 Constitutional: Yes: No Distress, Calm Neck: Yes: Supple Cardiovascular: Yes: Regular Rate and Rhythm Respiratory: Yes: Regular, Diminished Gastrointestinal: Yes: Normal Bowel Sounds, Soft, Abdomen, Obese Edema: Yes Labs: CBC, BMP 11/06/16 05:20 11/06/16 05:20 INR, PTT INR 1.20 (0.82-1.09) 10/31/16 08:55 Problem List - Problems (1) Acute on chronic diastolic (congestive) heart failure Code(s): I50.33 - ACUTE ON CHRONIC DIASTOLIC (CONGESTIVE) HEART FAILURE (2) Hypertensive urgency Code(s): I10 - ESSENTIAL (PRIMARY) HYPERTENSION (3) Dyspnea on exertion Code(s): R06.09 - OTHER FORMS OF DYSPNEA (4) Morbid obesity Code(s): E66.01 - MORBID (SEVERE) OBESITY DUE TO EXCESS CALORIES Qualifiers: Obesity type: unspecified obesity type Qualified Code(s): E66.01 - Morbid (severe) obesity due to excess calories (5) Obstructive sleep apnea Code(s): G47.33 - OBSTRUCTIVE SLEEP APNEA (ADULT) (PEDIATRIC) (6) Pneumonia Code(s): J18.9 - PNEUMONIA, UNSPECIFIED ORGANISM Qualifiers: Pneumonia type: due to unspecified organism Laterality: bilateral Lung location: lower lobe of lung Qualified Code(s): J18.9 - Pneumonia, unspecified organism Assessment/Plan 1. Acute on chronic diastolic failure with mildly decreased LV systolic function resolved 2. Acute hypoxic respiratory failure referable to pneumonia resolved 3. Hypertension 4. Morbid obesity 5. OSAS PLAN: 1. Lasix 40 po qd with monitoring renal function and electrolytes 2. Continue Carvedilol 6.25 mg BID and Diovan 80 mg QD with uptitration as hemodynamics tolerate. Continue ASA 325 qd 3. Will need sleep study at some point - can be done as outpatient 4. Complete antibiotic and antiviral coverage 5. Tamiflu, BD and Mucomyst 6. D/c planning
--- NOTE | 2016-11-07 17:38 | PN ---
Progress Note (short form) - Note Progress Note: Short PN 11-07-16 : Pt is afebrile w/0 resp distress ; w Neg Final BCS and other cultures and FUP CXK Today NEG for Infiltrates. Pulm reported NO NEED for Brovana or Steroids post dc home. See DC Pappers Instructions and recs. ALL Rxs ERX sent to Pharmacy. Pt will amke New Pt FUP appt at my office next week.ENGD of note Problem List - Problems (1) Acute on chronic diastolic (congestive) heart failure Code(s): I50.33 - ACUTE ON CHRONIC DIASTOLIC (CONGESTIVE) HEART FAILURE (2) Dyspnea on exertion Code(s): R06.09 - OTHER FORMS OF DYSPNEA (3) Elevated blood pressure Code(s): I10 - ESSENTIAL (PRIMARY) HYPERTENSION (4) Morbid obesity Code(s): E66.01 - MORBID (SEVERE) OBESITY DUE TO EXCESS CALORIES Qualifiers: Obesity type: unspecified obesity type Qualified Code(s): E66.01 - Morbid (severe) obesity due to excess calories (5) Bilateral pneumonia Code(s): J18.9 - PNEUMONIA, UNSPECIFIED ORGANISM (6) Discharge planning issues Code(s): Z02.9 - ENCOUNTER FOR ADMINISTRATIVE EXAMINATIONS, UNSPECIFIED
--- NOTE | 2017-01-26 18:05 | DS ---
DATE OF ADMISSION: 10/31/2016 DATE OF DISCHARGE: 11/07/2016 DISCHARGE DIAGNOSES: 1. Hypertensive urgency. 2. Elevated blood pressure. 3. Acute on chronic diastolic (congestive) heart failure. 4. Dyspnea on exertion. 5. Obstructive sleep apnea. 6. Morbid obesity (body mass index 57). DISCHARGE HOME MEDICATIONS: Please see preadmission medications. Also Brovana 1 amp nebulizer b.i.d., carvedilol 6.25 mg p.o. b.i.d., valsartan 80 mg p.o. daily, Lasix 40 mg p.o. daily, albuterol 2 puffs q.4 hours p.r.n. x10 days p.r.n. for shortness of breath or wheezing. DISPOSITION: He was sent home in stable condition with recommendations to follow with Dr. Ramos as pulmonary physician, Dr. Ford as cardiac physician, and myself as new primary care physician. HOSPITAL COURSE: A 51-year-old male who had not seen a physician since , was in his usual state of health until the day prior to admission, in which he experienced sudden onset of dyspnea on exertion while walking his dogs, which he usually does on a daily basis. The patient came on the next day to the emergency department, where it was noted that his blood pressure was 177/90, his oxygen saturation at room air was 91, heart rate 96, respiratory rate was 18, and afebrile. Physical exam remarkable for obesity (BMI of 57), with an unremarkable cardiac exam and normal pulmonary exam as well. Laboratory data was unremarkable and chest x-ray was negative as well. In the ED, patient was treated with IV diuretics as well as beta blockers. An echocardiogram was done, which showed the chronic diastolic congestive heart failure. The patient was admitted to Telemetry, and a cardiology consultation was requested. Patient's oxygen saturation remained on the low levels, and after consultation with the apartment leasing specialist as well as automotive engineer and Dr. Singh, it was recommended that the patient be transferred to the intensive care unit for closer monitoring in the [facility]. The patient was also diagnosed as having a community-acquired pneumonia, which could have been bacterial or viral but was treated with Tamiflu and vancomycin under the guidance of the infectious disease call center support consultant. The workup, in terms of the blood cultures, Legionella, pneumonia, and influenza type A and B, was all negative. The patient improved slowly and was discharged home with above-mentioned instructions, in stable condition. [place] [id number]
== END 2016-11-07 18:24 | disposition home or self-care (01) | DRG 199 ==
LOC: FER 07:42 → FM/S 11:42 → OBSVTOIN 18:50 → JICU 11-02 17:40 → J8W 11-06 21:47
PROC: 3E0F7GC Introduction of Other Therapeutic Substance into Respiratory Tract, Via Natural or Artificial Opening (ICD-10-PCS; principal; 2016-10-31)
DX: I16.0 Hypertensive urgency (principal); I11.0 Hypertensive heart disease with heart failure; I50.33 Acute on chronic diastolic (congestive) heart failure; R73.9 Hyperglycemia, unspecified; J96.01 Acute respiratory failure with hypoxia; G47.33 Obstructive sleep apnea (adult) (pediatric); E66.01 Morbid (severe) obesity due to excess calories; Z68.43 Body mass index [BMI] 50.0-59.9, adult; Z71.3 Dietary counseling and surveillance; J18.9 Pneumonia, unspecified organism; Z88.0 Allergy status to penicillin; Z87.891 Personal history of nicotine dependence
CPT/HCPCS: 36415; 36600; 71010-TC; 71020-TC; 71275-TC; 80048; 80053; 80061; 82550; 82803; 83036; 83605; 83735; 83880; 84100; 84439; 84443; 84484; 85025; 85027; 85379; 85610; 85651; 86140; 87040; 87254; 87804; 87899; 93005; 93306-TC; 94640; 94761; 99285-25; G0008; G0378; J1644; Q2037